=== PATIENT | female | born 1940 | race Caucasian/White ===

== ENCOUNTER 2016-09-07 11:00 | Outpatient (CLI) | payer MEDICARE, OTHER | END 2016-09-07 11:01 | DX: R41.3 Other amnesia (principal); E78.5 Hyperlipidemia, unspecified; D72.819 Decreased white blood cell count, unspecified ==

== ENCOUNTER 2016-10-05 09:56 | Outpatient (CLI) | payer MEDICARE, OTHER ==
--- NOTE | 2016-10-08 14:20 | Mammography Report ---
DIGITAL SCREENING MAMMOGRAM: 10/05/2016 CLINICAL INDICATION: A 76-year-old with personal history of left breast cancer, status post mastectom y and chemoradiation, history of benign right breast biopsies, for screening. COMPARISON: 03/2015, 01/2014, 12/2012, 12/2011, 01/2011, 12/2009, 12/2008, 12/2007, 11/2006. TECHNIQUE: Right CC and MLO views were obtained. FINDINGS: The right breast again demonstrates heterogeneously dense fibroglandular parenchyma. Postb iopsy changes are stable. Coarse and punctate, typically benign calcifications are present. No suspic ious masses, clustered microcalcifications, or regions of architectural distortion are identified. IMPRESSION: BENIGN FINDINGS. RECOMMENDATION: ROUTINE ANNUAL SCREENING UNLESS OTHERWISE CLINICALLY INDICATED. BIRADS CATEGORY 2-BENIGN FINDINGS. STANDARD QUALIFYING STATEMENTS 1. This examination was reviewed with the aid of Computer-Aided Detection (CAD). 2. A negative or benign imaging report should not delay biopsy if clinically suspicious findings are present. Consider surgical consultation if warranted. More than 5% of cancers are not identified by i maging. 3. Dense breasts may obscure an underlying neoplasm. JOB #: [id number] EXT JOB #:
== END 2016-10-05 09:57 | disposition home or self-care (01) ==
LOC: DI 09:56
PROVIDERS: ATTEND Family Medicine
DX: Z12.31 Encounter for screening mammogram for malignant neoplasm of breast (principal); Z85.3 Personal history of malignant neoplasm of breast; Z90.12 Acquired absence of left breast and nipple
CPT/HCPCS: 77067

== ENCOUNTER 2017-09-19 11:31 | Outpatient (CLI) | payer MEDICARE, OTHER ==
[2017-09-19 19:01] LABS: BASOPHILS % (AUTO) 0.8 %; EOSINOPHILS # (AUTO) 0.1 10^3/uL (0.0-0.7); EOSINOPHILS % (AUTO) 1.4 %; HGB - HEMOGLOBIN 13.3 g/dL (12.0-16.0); LYMPHOCYTES # (AUTO) 1.5 10^3/uL (1.5-3.5); LYMPHOCYTES % (AUTO) 32.7 %; MEAN CORPUSCULAR HEMOGLOBIN 31.1 pg (27.0-31.0); MEAN CORPUSCULAR HGB CONC 32.9 g/dL (32.0-36.0); MEAN CORPUSCULAR VOLUME 94.8 fL (81.0-99.0); MEAN PLATELET VOLUME 9.7 fL (7.9-10.8); MONOCYTES # (AUTO) 0.4 10^3/uL (0.0-1.0); MONOCYTES % (AUTO) 8.7 %; NEUTROPHILS # (AUTO) 2.5 10^3/uL (1.5-6.6); NEUTROPHILS % (AUTO) 56.4 %; PLT - PLATELET COUNT 190 10^3/uL (130-450); RED BLOOD COUNT 4.29 10^6/uL (4.20-5.40); RED CELL DISTRIBUTION WIDTH 14.2 % (12.0-15.0); WHITE BLOOD COUNT 4.5 x10^3/uL (4.8-10.8)
[2017-09-19 19:39] LABS: ALBUMIN 4.3 g/dL (3.2-5.5); ALBUMIN/GLOBULIN RATIO 1.7 (1.0-2.2); ALKALINE PHOSPHATASE 40 IU/L (42-121); ALT ALANINE AMINOTRANSFERASE < 10 IU/L (10-60); AST ASPARTATE AMINOTRANSFERASE 15 IU/L (10-42); BUN - BLOOD UREA NITROGEN 24 mg/dL (6-20); CARBON DIOXIDE - CO2 28 mmol/L (21-32); CHLORIDE 101 mmol/L (101-111); CHOL/HDL RATIO 4.4 (<4.4); CHOLESTEROL 288 mg/dL; GFR - MDRD 54 (>89); GLUCOSE 88 mg/dL (70-100); HDL CHOLESTEROL 65 mg/dL; LDL CHOLESTEROL,CALCULATED 206 mg/dL; LDL/HDL RATIO 3.2 (<4.4); SODIUM 137 mmol/L (135-145); TOTAL PROTEIN 6.8 g/dL (6.7-8.2); VLDL CHOLESTEROL 17 mg/dL
== END 2017-09-19 11:32 | disposition home or self-care (01) ==
LOC: LAB.WCP 11:31
PROVIDERS: ATTEND Family Medicine
DX: G20 Parkinson's disease (principal); E78.5 Hyperlipidemia, unspecified; E55.9 Vitamin D deficiency, unspecified
CPT/HCPCS: 36415; 80053; 80061; 82306; 83721; 85025

== ENCOUNTER 2017-10-31 08:00 | Outpatient (CLI) | END 2017-10-31 08:01 | disposition home or self-care (01) ==

== ENCOUNTER 2017-11-01 08:00 | Outpatient (CLI) | payer MEDICARE, OTHER | END 2017-11-01 08:01 | disposition home or self-care (01) | LOC: LAB.WCP 08:00 | PROVIDERS: ATTEND Family Medicine | DX: R19.7 Diarrhea, unspecified (principal) | CPT/HCPCS: 81599; 83630; 87045; 87046; 87177; 87209; 87329; 87493 ==

== ENCOUNTER 2018-03-23 10:44 | Outpatient (CLI) | payer MEDICARE, OTHER ==
--- NOTE | 2018-03-24 12:29 | Mammography Report ---
Reason: SCREENING MAMMO Procedure Date: 03/23/2018 Accession Number: [id number] / [id number] Procedure: LAST - Screening Mammo Right w/Emmanuel CPT Code: FULL RESULT: EXAM: Screening Mammo Right w/Emmanuel DATE: 03/23/2018 11:46 AM CLINICAL HISTORY: 78-year-old female with personal history of left breast cancer status post mastectomy and chemoradiation for screening. TECHNIQUE: Right CC, MLO and exaggerated CC views were obtained. COMPARISON: 10/05/2016, 03/12/2015, 01/08/2014, 01/03/2013. FINDINGS: The right breast demonstrates heterogeneously dense fibroglandular parenchyma. Coarse typically benign calcifications are identified. No suspicious masses, clustered microcalcifications, or regions of architectural distortion are identified. IMPRESSION: Benign findings RECOMMENDATION: Routine annual screening unless otherwise clinically indicated. BIRADS CATEGORY 2: Benign findings STANDARD QUALIFYING STATEMENTS: 1. This examination was not reviewed with the aid of Computer-Aided Detection (CAD). 2. A negative or benign imaging report should not delay biopsy if clinically suspicious findings are present. Consider surgical consultation if warrented. More than 5% of cancers are not identified by imaging. 3. Dense breasts may obscure an underlying neoplasm. 4. This examination was reviewed with the aid of 3D breast imaging (tomosynthesis).
== END 2018-03-23 10:45 | disposition home or self-care (01) ==
LOC: DI 10:44
DX: Z12.31 Encounter for screening mammogram for malignant neoplasm of breast (principal); Z08 Encounter for follow-up examination after completed treatment for malignant neoplasm; Z85.3 Personal history of malignant neoplasm of breast
CPT/HCPCS: 77063

== ENCOUNTER 2018-04-07 08:00 | Outpatient (CLI) | payer MEDICARE, OTHER ==
[2018-04-07 20:24] LABS: H. PYLORIS ANTIGEN STL NEGATIVE (Negative)
== END 2018-04-07 23:59 | disposition home or self-care (01) ==
LOC: LAB.R 08:00
PROVIDERS: ATTEND Family Medicine
DX: R19.7 Diarrhea, unspecified (principal)
CPT/HCPCS: 81599; 83630; 87045; 87046; 87177; 87209; 87329; 87338; 87493

== ENCOUNTER 2018-04-08 12:58 | Outpatient (CLI) | payer MEDICARE, OTHER ==
[2018-04-08 13:22] LABS: BASOPHILS # (AUTO) 0.1 10^3/uL (0.0-0.1); BASOPHILS % (AUTO) 0.9 %; EOSINOPHILS # (AUTO) 0.1 10^3/uL (0.0-0.7); EOSINOPHILS % (AUTO) 1.1 %; HGB - HEMOGLOBIN 14.2 g/dL (12.0-16.0); LYMPHOCYTES # (AUTO) 1.4 10^3/uL (1.5-3.5); LYMPHOCYTES % (AUTO) 25.5 %; MEAN CORPUSCULAR HEMOGLOBIN 31.7 pg (27.0-31.0); MEAN CORPUSCULAR HGB CONC 33.8 g/dL (32.0-36.0); MEAN CORPUSCULAR VOLUME 93.7 fL (81.0-99.0); MEAN PLATELET VOLUME 9.4 fL (7.9-10.8); MONOCYTES # (AUTO) 0.5 10^3/uL (0.0-1.0); MONOCYTES % (AUTO) 8.9 %; NEUTROPHILS # (AUTO) 3.6 10^3/uL (1.5-6.6); NEUTROPHILS % (AUTO) 63.6 %; PLT - PLATELET COUNT 216 10^3/uL (130-450); RED BLOOD COUNT 4.48 10^6/uL (4.20-5.40); RED CELL DISTRIBUTION WIDTH 14.1 % (12.0-15.0); WHITE BLOOD COUNT 5.6 x10^3/uL (4.8-10.8)
[2018-04-08 13:34] LABS: ALBUMIN 4.5 g/dL (3.2-5.5); ALBUMIN/GLOBULIN RATIO 1.6 (1.0-2.2); ALKALINE PHOSPHATASE 49 IU/L (42-121); ALT ALANINE AMINOTRANSFERASE < 10 IU/L (10-60); AST ASPARTATE AMINOTRANSFERASE 15 IU/L (10-42); BUN - BLOOD UREA NITROGEN 31 mg/dL (6-20); CALCIUM 9.5 mg/dL (8.5-10.3); CARBON DIOXIDE - CO2 30 mmol/L (21-32); CHLORIDE 100 mmol/L (101-111); CREATININE 1.3 mg/dL (0.4-1.0); GFR - MDRD 40 (>89); GLUCOSE 101 mg/dL (70-100); SODIUM 136 mmol/L (135-145); TOTAL PROTEIN 7.4 g/dL (6.7-8.2)
== END 2018-04-08 12:59 | disposition home or self-care (01) ==
LOC: DI 12:58
PROVIDERS: ATTEND Family Medicine
DX: R10.9 Unspecified abdominal pain (principal); R11.2 Nausea with vomiting, unspecified; R19.7 Diarrhea, unspecified; Z53.9 Procedure and treatment not carried out, unspecified reason
CPT/HCPCS: 80053; 85025

== ENCOUNTER 2018-04-12 09:41 | Outpatient (CLI) | payer MEDICARE, OTHER ==
[2018-04-12] MEDS ORDERED: IOVERSOL 320 50 ML VIAL ONE (10:04)
[2018-04-12] MEDS ORDERED: IOVERSOL 320 100 ML VIAL IVP ONE ×2 (10:04→13:21)
[2018-04-12 10:19] LABS: BASOPHILS # (AUTO) 0.1 10^3/uL (0.0-0.1); BASOPHILS % (AUTO) 1.1 %; EOSINOPHILS # (AUTO) 0.1 10^3/uL (0.0-0.7); EOSINOPHILS % (AUTO) 2.3 %; HGB - HEMOGLOBIN 14.1 g/dL (12.0-16.0); LYMPHOCYTES # (AUTO) 1.1 10^3/uL (1.5-3.5); LYMPHOCYTES % (AUTO) 24.1 %; MEAN CORPUSCULAR HEMOGLOBIN 31.7 pg (27.0-31.0); MEAN CORPUSCULAR HGB CONC 34.1 g/dL (32.0-36.0); MEAN CORPUSCULAR VOLUME 93.2 fL (81.0-99.0); MEAN PLATELET VOLUME 9.4 fL (7.9-10.8); MONOCYTES # (AUTO) 0.5 10^3/uL (0.0-1.0); MONOCYTES % (AUTO) 11.1 %; NEUTROPHILS # (AUTO) 2.7 10^3/uL (1.5-6.6); NEUTROPHILS % (AUTO) 61.4 %; PLT - PLATELET COUNT 204 10^3/uL (130-450); RED BLOOD COUNT 4.43 10^6/uL (4.20-5.40); RED CELL DISTRIBUTION WIDTH 13.8 % (12.0-15.0); WHITE BLOOD COUNT 4.5 x10^3/uL (4.8-10.8)
[2018-04-12 10:30] LABS: ALBUMIN 4.3 g/dL (3.2-5.5); ALBUMIN/GLOBULIN RATIO 1.8 (1.0-2.2); ALKALINE PHOSPHATASE 43 IU/L (42-121); ALT ALANINE AMINOTRANSFERASE < 10 IU/L (10-60); AST ASPARTATE AMINOTRANSFERASE 14 IU/L (10-42); BILIRUBIN,TOTAL 0.9 mg/dL (0.2-1.0); BUN - BLOOD UREA NITROGEN 24 mg/dL (6-20); CARBON DIOXIDE - CO2 30 mmol/L (21-32); CHLORIDE 101 mmol/L (101-111); GFR - MDRD 54 (>89); GLUCOSE 100 mg/dL (70-100); SODIUM 136 mmol/L (135-145); TOTAL PROTEIN 6.7 g/dL (6.7-8.2)
[2018-04-12] MEDS ORDERED: IOVERSOL 320 50 ML VIAL PO ONE (13:21)
--- NOTE | 2018-04-12 13:34 | CT Report ---
Reason: ABDOMINAL PAIN, NAUSEA VOMITING, CHRONIC DIARRHE Procedure Date: 04/12/2018 Accession Number: [id number] / [id number] Procedure: CT - Abdomen/Pelvis W/ CPT Code: FULL RESULT: EXAM: CT ABDOMEN AND PELVIS EXAM DATE: 04/12/2018 11:44 AM. CLINICAL HISTORY: Abdominal pain, nausea, vomiting, chronic diarrhea. COMPARISONS: ABDOMEN/PELVIS W/O 10/18/2014 11:25 AM. TECHNIQUE: Routine helical CT imaging was performed through the abdomen and pelvis. IV contrast: OPTI 320 80mL. Enteric contrast: Yes. Reconstructions: Coronal and sagittal. In accordance with CT protocol optimization, one or more of the following dose reduction techniques were utilized for this exam: automated exposure control, adjustment of mA and/or KV based on patient size, or use of iterative reconstructive technique. FINDINGS: Lung Bases: Unremarkable. Liver: Multiple hepatic cysts and hypodensities which are too small to characterize. The largest cyst is in the right lobe of the liver demonstrates septations and measures up to 2.4 cm. Gallbladder/Bile Ducts: Unremarkable. Spleen: Normal. Pancreas: Normal. Adrenal Glands: Normal. Kidneys: Normal. No masses or hydronephrosis. Peritoneal Cavity/Bowel: Marked diverticulosis of the sigmoid colon. There is mild focal stranding surrounding the distal sigmoid colon suggestive of diverticulitis without macro perforation. No free fluid, free air . No mass. Pelvic Organs: Normal. The bladder and visualized pelvic organs are within normal limits. Vasculature: Atherosclerosis without aneurysm. Bones: 4 mm of anterolisthesis of L3 on L4 and anterior wedge compression fracture of L1, approximately 25% loss of height, also seen in 2015. No aggressive osseous lesions are seen. Other: None. IMPRESSION: Uncomplicated diverticulitis of the distal sigmoid colon in the setting of extensive sigmoid diverticulosis. RADIA
== END 2018-04-12 09:42 | disposition home or self-care (01) ==
LOC: LAB 09:41 → DI 09:42
PROVIDERS: ATTEND Family Medicine
DX: K57.32 Diverticulitis of large intestine without perforation or abscess without bleeding (principal)
CPT/HCPCS: 36415; 74177; 80053; 85025; Q9967

== ENCOUNTER 2018-06-22 09:26 | Day surgery (SDC) | payer MEDICARE, OTHER ==
[~2018-06-22 09:26] MED LIST: BRIMONIDINE 0.2% OPHTH DROPS 5 ML ONE; BSS/LIDOCAINE/EPINEPHRINE 1 ML SYRINGE ONE; EPINEPHrine 1 MG/ML AMP ONE; TIMOLOL 0.5% OPHTH DROPS ONE; TRIAMCIN/MOXIFLOX OPHTHALMIC 0.6 ML VIAL IO ONE; VANCOMYCIN OPHTHALMI 8MG/0.8ML 8 MG/0.8 ML SYRINGE IO ONE
[2018-06-22] MEDS ORDERED: PROPARACAINE 0.5% OPHTH DROPS 15 ML ONE (09:43)
[2018-06-22] MEDS ORDERED: KETOROLAC 0.45% OPHTH DROPS ONE (09:44)
[2018-06-22] MEDS ORDERED: CYCLOPENTOLATE 1% OPHTH DROPS 2 ML ONE (09:44)
[2018-06-22] MEDS ORDERED: PHENYLEPHRINE 2.5% OPHTH 2 ML DROPS ONE (09:45)
[2018-06-22] MEDS ORDERED: LACTATED RINGERS 500 ML IV ONE (09:50)
[2018-06-22] MEDS ORDERED: KETOROLAC 0.45% OPHTH DROPS RIGHTEYE ONE (09:55)
[2018-06-22] MEDS ORDERED: PHENYLEPHRINE 2.5% OPHTH 2 ML DROPS RIGHTEYE ONE (09:55)
[2018-06-22] MEDS ORDERED: CYCLOPENTOLATE 1% OPHTH DROPS 2 ML RIGHTEYE ONE (09:55)
[2018-06-22] MEDS ORDERED: PROPARACAINE 0.5% OPHTH DROPS 15 ML RIGHTEYE ONE ×2 (09:55→11:09)
--- NOTE | 2018-06-22 10:06 | ANESTHESIA ---
Pre-Anesthesia VS, & Labs - Diagnosis R nuclear sclerotic cataract - Procedure R laser assisted extraction cataract with IOL Vital Signs: Temp Pulse Resp BP Pulse Ox 36.1 C L 55 L 14 98/59 L 99 06/22/18 09:45 06/22/18 09:45 06/22/18 09:45 06/22/18 09:45 06/22/18 09:45 Height 5 ft 4 in Weight (kg) 52.9 kg Body Mass Index 26.6 - NPO >8 hours - Is Patient ?: No Home Medications and Allergies Home Medications: Ambulatory Orders Carbidopa/Levodopa [Carbidopa-Levo ER 25-100 Tab] 1 each PO 06/22/18 Escitalopram [Lexapro] 10 mg PO DAILY 06/22/18 Gabapentin [Neurontin] 100 mg PO ONCE 06/22/18 Metoprolol Succinate [Toprol Xl] 25 mg PO ONCE 06/22/18 Calcium Carbonate [Calcium] 600 mg PO BID 08/13/13 Cholecalciferol (Vitamin D3) [Vitamin D] 1,000 unit PO BID 08/13/13 Rabeprazole Sodium [Aciphex] 20 mg PO DAILY 08/13/13 Simvastatin [Zocor] 20 mg PO DAILY 08/13/13 Zaleplon [Sonata] 5 mg PO DAILY 08/13/13 Fluticasone [Flonase] 1 sprays ALEXUS DAILY 08/12/14 Allergies/Adverse Reactions: Allergies Allergy/AdvReac Type Severity Reaction Status Date / Time No Known Drug Allergies Allergy Verified 08/13/13 09:49 Anes History & Medical History - Anesthetic History Anesthesia Complications: reports: No previous complications Family history of Anesthesia Complications: Denies Family history of Malignant Hyperthermia: Denies - Medical History Cardiovascular: reports: Hypertension, High cholesterol Neuro: reports: Parkinson's (tremulous at times) - Surgical History General: Colonoscopy Gynecologic: Mastectomy Orthopedic: Rotator cuff repair Exam General: Alert, Oriented x3, Cooperative Dental: WNL Mouth Openin Fingerbreadth Neck Mobility: Normal Mallampati classification: II Thyromental Distance: 4-6 cm Respiratory: Normal breath sounds Cardiovascular: Regular rate (anthony @50ish) Neurological: Normal speech Mental/Cognitive Status: Alert/Oriented X3, Normal for patient Plan Anesthesia Type: MAC Consent for Procedure(s) Verified and Reviewed: Yes Code Status: Attempt Resuscitation ASA classification: 2-Mild systemic disease Is this case an emergency?: No
[2018-06-22] MEDS ORDERED: BRIMONIDINE 0.2% OPHTH DROPS 5 ML OPTH ONE (11:18)
[2018-06-22] MEDS ORDERED: EPINEPHrine 1 MG/ML AMP IVP ONE (11:18)
[2018-06-22] MEDS ORDERED: CHONDR SULF/HYALURONATE SYRINGE IO ONE (11:18)
[2018-06-22] MEDS ORDERED: TIMOLOL 0.5% OPHTH DROPS OPTH ONE (11:18)
[2018-06-22] MEDS ORDERED: BSS/LIDOCAINE/EPINEPHRINE 1 ML SYRINGE IO ONE (11:40)
[2018-06-22] MEDS ORDERED: LACTATED RINGERS 1,000 ML IV ONE (11:45)
[2018-06-22] MEDS ORDERED: MIDAZOLAM 2 MG/2 ML VIAL IVP ONE (12:00)
[2018-06-22] MEDS ORDERED: PROPOFOL 200 MG/20 ML VIAL IVP ONE (12:00)
--- NOTE | 2018-06-22 12:15 | OPERATIVE REPORT ---
DATE OF SERVICE: 06/22/2018 Physician: Peter Harper MD PREOPERATIVE DIAGNOSIS: Visually significant cataract, right eye. This was her first cataract surgery. POSTOPERATIVE DIAGNOSIS: Visually significant cataract, right eye. This was her first cataract surgery. NAME OF PROCEDURE: Phacoemulsification with posterior chamber intraocular lens implant, right eye. Laser assist was attempted, but the patient was unable to cooperate for eye docking. SURGEON: Peter Harper MD ANESTHESIA: Monitored anesthesia care was planned; however, due to cooperation issues and dementia, it was decided to go to general surgery with LMA. COMPLICATIONS: None. OPERATIVE INDICATIONS: This is a 78-year-old woman with progressive vision loss in the right eye due to 3+ nuclear sclerotic cataract. Best corrected visual acuity was 20/70, with glare to 20/125 in the right eye. Indications for this surgery were difficulty seeing words on a computer screen, difficulty reading, difficulty seeing street signs, difficulty driving in low light or at night, difficulty driving at night because of headlights from other vehicles, and difficulty with glare or bright lights in any situation. She was consented at length concerning risks and benefits of cataract surgery, after which she expressed a desire to proceed with surgery. OPERATIVE PROCEDURE: The patient was taken to OR #3 and placed under monitored anesthesia care. A surgical timeout was conducted confirming the correct patient, correct procedure, and correct surgical site. As stated before, she was placed under the LenSx laser, but after multiple attempts was not able to dock due to cooperation and movement. Laser assisted cataract surgery was abandoned and the patietn was place under general anesthesia in preparation for traditional cataract surgery. The eye was entered at the 12 and 9 o'clock positions. Intracameral Shugarcaine was injected into the anterior chamber, followed by Viscoat. A capsulorrhexis flap was created and removed from the anterior chamber. The nucleus was hydrodissected and phacoemulsified. The cortex was evacuated using automated infusion and aspiration. Provisc was injected in the capsular bag, and an 18.0 diopter intraocular lens inserted in the bag. Approximately 0.8 mL of a mixture of triamcinolone, moxifloxacin and vancomycin was injected subconjunctivally in the superior quadrant for infection and inflammation prophylaxis. I?A was used to evacuate the viscoelastic materials. The eye was inflated to physiologic pressure using balanced salt solution, and found to be watertight. Patient was extubated and taken from the operating room in good condition, and given postoperative instructions. TD: 06/22/2018 11:58 MTDKevin
[2018-06-22 12:33] VITALS: BP 127/68
== END 2018-06-22 09:27 | disposition home or self-care (01) ==
LOC: SDS 09:26
PROVIDERS: ATTEND Ophthalmology
PROC: 08RJ3JZ Replacement of Right Lens with Synthetic Substitute, Percutaneous Approach (ICD-10-PCS; principal; 2018-06-22 10:45)
DX: H25.11 Age-related nuclear cataract, right eye (principal); G20 Parkinson's disease; F02.80 Dementia in other diseases classified elsewhere, unspecified severity, without behavioral disturbance, psychotic disturbance, mood disturbance, and anxiety; F41.9 Anxiety disorder, unspecified; I10 Essential (primary) hypertension; I48.91 Unspecified atrial fibrillation
CPT/HCPCS: 66984; A9270; J3490; J7120; V2632

== ENCOUNTER 2018-07-03 13:43 | Day surgery (SDC) | payer MEDICARE, OTHER ==
[2018-07-03] MEDS ORDERED: LACTATED RINGERS 1,000 ML IV ONE (14:21)
[2018-07-03] MEDS ORDERED: MIDAZOLAM 2 MG/2 ML VIAL IVP ONE (15:04)
[2018-07-03] MEDS ORDERED: fentaNYL 100 MCG/2 ML VIAL IVP ONE (15:04)
[2018-07-03 16:15] VITALS: BP 110/65
== END 2018-07-03 16:13 | disposition home or self-care (01) ==
LOC: SDS 13:43
PROVIDERS: ATTEND Surgery
PROC: 0DBP8ZZ Excision of Rectum, Via Natural or Artificial Opening Endoscopic (ICD-10-PCS; principal; 2018-07-03 15:00)
DX: Z12.11 Encounter for screening for malignant neoplasm of colon (principal); K62.1 Rectal polyp; K64.8 Other hemorrhoids; G20 Parkinson's disease; F02.80 Dementia in other diseases classified elsewhere, unspecified severity, without behavioral disturbance, psychotic disturbance, mood disturbance, and anxiety; K42.9 Umbilical hernia without obstruction or gangrene
CPT/HCPCS: 45380; J7120

== ENCOUNTER 2018-07-12 13:43 | Emergency (ER) | payer MEDICARE, OTHER ==
--- NOTE | 2018-07-12 15:13 | CT Report ---
Reason: fall, rib pain Procedure Date: 07/12/2018 Accession Number: [id number] / [id number] Procedure: CT - CHEST WO CPT Code: FULL RESULT: EXAM: CT CHEST EXAM DATE: 07/12/2018 02:38 PM. CLINICAL HISTORY: Fall, rib pain. COMPARISONS: ABDOMEN/PELVIS W/ 04/12/2018 11:27 AM. TECHNIQUE: Routine helical CT imaging was performed through the chest. IV contrast: None. Reconstructions: Coronal and sagittal. In accordance with CT protocol optimization, one or more of the following dose reduction techniques were utilized for this exam: automated exposure control, adjustment of mA and/or KV based on patient size, or use of iterative reconstructive technique. FINDINGS: Lungs/Pleura: Spiculated right posterior apical mass measuring roughly 15 x 11 mm on lung image 14. This appears roughly contiguous with a similar nodule measuring about 12 mm in diameter on image 19. Trace left pleural effusion. Otherwise clear. Mediastinum: Overall normal heart size. No pericardial effusion. At least one vessel coronary artery calcification. No lymphadenopathy. Bones: Fractures of anterolateral left sixth, seventh, and eighth ribs. Old anterior upper endplate compression of L1. Visualized Abdomen: Hepatic hemangioma, hyperdense left renal cyst, questionable density in gallbladder. Other: None. IMPRESSION: 1. Left sixth, seventh, and eighth rib fractures. 2. Spiculated right apical lung mass, suspicious for neoplasm. Follow-up biopsy or PET scan is recommended, per Fleischner Society guidelines. 3. Other chronic or incidental findings. RADIA
--- NOTE | 2018-07-12 15:14 | XRAY Report ---
Reason: hip pain Procedure Date: 07/12/2018 Accession Number: [id number] / [id number] Procedure: XR - Hip w/Pelvis 2-3V LT CPT Code: FULL RESULT: EXAM: LEFT HIP RADIOGRAPHY EXAM DATE: 07/12/2018 02:57 PM. CLINICAL HISTORY: Hip pain. COMPARISON: None. TECHNIQUE: 2 views. FINDINGS: Bones: No fracture or focal bony lesion. Joints: No evidence of dislocation. Soft Tissues: No unexpected soft tissue findings. IMPRESSION: No evidence of fracture or dislocation. RADIA
--- NOTE | 2018-07-12 15:51 | ED Physician Documentation ---
PD HPI Fall - Stated complaint Stated Complaint: GLF/SENT BY - Chief complaint Chief Complaint: Resp - Additional information Additional information: 78-year-old female presents the emergency department for evaluation of left- sided rib pain after falling several days ago at home. The patient fell into some furniture and subsequently has had ongoing left-sided rib pain. The patient also bruised her left hip but that has improved. The patient denies injury to her head, neck, abdomen or upper extremities. Symptoms are described as moderate. No relieving factors. No other associated symptoms Review of Systems Constitutional: denies: Fever Eyes: denies: Discharge Ears: denies: Ear pain Nose: denies: Congestion Throat: denies: Sore throat Cardiac: reports: Chest pain / pressure (Chest pain) GI: denies: Abdominal Pain Musculoskeletal: reports: Extremity pain. 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 - Present Medications Home Medications: Ambulatory Orders Medication Instructions Recorded Confirmed Rabeprazole Sodium [Aciphex] 20 mg PO DAILY 08/13/13 07/03/18 Simvastatin [Zocor] 20 mg PO DAILY 08/13/13 07/03/18 Escitalopram [Lexapro] 20 mg PO DAILY 06/22/18 07/03/18 Metoprolol Succinate [Toprol Xl] 25 mg PO ONCE 06/22/18 07/03/18 Aspirin 325 mg PO PRN 06/30/18 Carbidopa/Levodopa [Carbidopa-Levo 1 tab PO DAILY 06/30/18 07/03/18 ER 25-100 Tab] Donepezil [Aricept] 5 mg PO DAILY 06/30/18 07/03/18 Fexofenadine HCl [Octavia Allergy] 180 mg PO DAILY 06/30/18 07/03/18 Loperamide [Imodium] 2 mg PO DAILY 06/30/18 06/30/18 Hydrocodone/Acetaminophen [Calliham 1 each PO Q6HR PRN #10 tablet 07/12/18 5-325 Tablet] - Allergies Allergies/Adverse Reactions: Allergies Allergy/AdvReac Type Severity Reaction Status Date / Time No Known Drug Allergies Allergy Verified 07/12/18 14:01 - Social History Does the pt smoke?: No Smoking Status: Never smoker Does the pt drink ETOH?: No Does the pt have substance abuse?: No PD ED PE NORMAL - General General: Alert and oriented X 3, No acute distress - HEENT HEENT: Atraumatic, PERRL, EOMI, Ears normal - Neck Neck: No bony TTP - Cardiac Cardiac: RRR, Strong equal pulses - Respiratory Respiratory: No respiratory distress, Clear bilaterally, Other (The patient is tender to palpation in the left lateral anterior chest wall, there is no crepitus or subcutaneous emphysema) - Abdomen Abdomen: Soft, Non tender, Non distended - Derm Derm: Normal color - Extremities Extremities: No deformity, No tenderness to palpate - Neuro Neuro: Alert and oriented X 3, Normal speech - Psych Psych: Normal mood Results - Vitals Vitals: Vital Signs - 24 hr 07/12/18 07/12/18 13:58 16:11 Temperature 36.8 C Heart Rate 54 L 54 L Respiratory 16 18 Rate Blood Pressure 127/44 L 153/88 H O2 Saturation 100 100 Oxygen O2 Source Room air - Rads (name of study) CT chest w/o Radiology: Final report received, See rad report (IMPRESSION: 1. Left sixth, seventh, and eighth rib fractures. 2. Spiculated right apical lung mass, suspicious for neoplasm. Follow-up biopsy or PET scan is recommended, per Fleischner Society guidelines. 3. Other chronic or incidental findingsIMPRESSION: 1. Left sixth, seventh, and eighth rib fractures. 2. Spiculated right apical lung mass, suspicious for neoplasm. Follow-up biopsy or PET scan is recommended, per Fleischner Society guidelines. 3. Other chronic or incidental findings) XR hip Radiology: Final report received, See rad report (No acute fracture) PD MEDICAL DECISION MAKING - ED course ED course: The findings were discussed with the patient and her . They understand the acute issue and the incidental finding of the lung mass. I explained that this will need further workup and offered to call to help arrange for follow-up with 1 of the tertiary centers. They have decided they would prefer to talk with 2 physician friends about the best center to be referred to. They will then follow up with primary care for referrals. I also discussed the findings with the patient's on-call provider who will arrange for a follow-up visit this week to help coordinate care. The patient currently appears appropriate for discharge and ongoing outpatient management. I discussed warning signs and recommended returning for any worsening or any concerns Departure - Departure Disposition: 01 Home, Self Care Clinical Impression: Lung mass Rib fractures Qualifiers: Encounter type: initial encounter Rib fracture type: multiple ribs Fracture type: closed Laterality: unspecified laterality Qualified Code(s): S22.49XA - Multiple fractures of ribs, unspecified side, initial encounter for closed fracture Contusion, hip Qualifiers: Encounter type: initial encounter Laterality: left Qualified Code(s): S70.02XA - Contusion of left hip, initial encounter Condition: Good Instructions: ED Fx Rib, ED Nodule Solitary Pulmonary Follow-Up: Eve Belle, [Primary Care Provider] - (Please follow-up this week for further workup and management of your acute findings seen on CT scan which will require either a biopsy or PET scan) Prescriptions: Hydrocodone/Acetaminophen [Calliham 5-325 Tablet] 1 each PO Q6HR PRN #10 tablet PRN Reason: Pain Comments: Please return to the emergency department for any worsening or any concerns
[2018-07-12] MEDS ORDERED: HYDROcod/ACETAM 5/325 MG TABLET PO STA (15:52)
[2018-07-12 16:12] VITALS: BP 153/88
== END 2018-07-12 16:39 | disposition home or self-care (01) ==
LOC: ED 13:43
DX: S22.42XA Multiple fractures of ribs, left side, initial encounter for closed fracture (principal); W19.XXXA Unspecified fall, initial encounter; Y92.009 Unspecified place in unspecified non-institutional (private) residence as the place of occurrence of the external cause; R91.8 Other nonspecific abnormal finding of lung field; I10 Essential (primary) hypertension; G20 Parkinson's disease
CPT/HCPCS: 71250; 99283; 99284

== ENCOUNTER 2018-08-10 09:00 | Day surgery (SDC) | payer MEDICARE, OTHER ==
[~2018-08-10 09:00] MED LIST changes: +CYCLOPENTOLATE 1% OPHTH DROPS 2 ML ONE; +KETOROLAC 0.45% OPHTH DROPS ONE; +PHENYLEPHRINE 2.5% OPHTH 2 ML DROPS ONE; +PROPARACAINE 0.5% OPHTH DROPS 15 ML ONE
--- NOTE | 2018-08-10 10:17 | ANESTHESIA ---
Pre-Anesthesia VS, & Labs - Diagnosis left nuclear sclerotic cataract - Procedure left extraction cataract with lens implant Vital Signs: Temp Pulse Resp BP Pulse Ox 36.5 C 53 L 16 129/66 100 08/10/18 09:39 08/10/18 09:39 08/10/18 09:39 08/10/18 09:39 08/10/18 09:39 Height 5 ft 2 in Weight (kg) 52.8 kg Body Mass Index 19.2 - NPO Other (water at 0925 today) - Is Patient ?: Not Applicable Home Medications and Allergies Rabeprazole Sodium [Aciphex] 20 mg PO DAILY 08/13/13 Simvastatin [Zocor] 20 mg PO DAILY 08/13/13 Escitalopram [Lexapro] 20 mg PO DAILY 06/22/18 Metoprolol Succinate [Toprol Xl] 25 mg PO ONCE 06/22/18 Aspirin 325 mg PO PRN 06/30/18 Carbidopa/Levodopa [Carbidopa-Levo ER 25-100 Tab] 1 tab PO DAILY 06/30/18 Donepezil [Aricept] 5 mg PO DAILY 06/30/18 Fexofenadine HCl [Octavia Allergy] 180 mg PO DAILY 06/30/18 Loperamide [Imodium] 2 mg PO DAILY 06/30/18 Allergies/Adverse Reactions: Allergies Allergy/AdvReac Type Severity Reaction Status Date / Time No Known Drug Allergies Allergy Verified 07/12/18 14:01 Anes History & Medical History - Anesthetic History Anesthesia Complications: reports: No previous complications Family history of Anesthesia Complications: Denies Family history of Malignant Hyperthermia: Denies - Medical History Cardiovascular: reports: Hypertension Pulmonary: reports: None Gastrointestinal: reports: Other Urinary: reports: None Neuro: reports: Parkinson's Musculoskeletal: reports: None Endocrine/Autoimmune: reports: None Skin: reports: Rosacea Smoking Status: Never smoker - Surgical History General: Colonoscopy Eyes Ears Nose Throat (EENT): Cataracts Gynecologic: Mastectomy Orthopedic: Shoulder arthroplasty Exam General: Alert, Oriented x3, Cooperative, No acute distress Dental: WNL Mouth Openin Fingerbreadth Neck Mobility: Normal Mallampati classification: II Thyromental Distance: 4-6 cm Respiratory: Lungs clear, Normal breath sounds, No respiratory distress, No accessory muscle use Cardiovascular: Normal S1, Normal S2 Plan Anesthesia Type: General Consent for Procedure(s) Verified and Reviewed: Yes Code Status: Attempt Resuscitation ASA classification: 2-Mild systemic disease Is this case an emergency?: No
[2018-08-10] MEDS ORDERED: LACTATED RINGERS 500 ML IV ONE (10:47)
[2018-08-10] MEDS ORDERED: CYCLOPENTOLATE 1% OPHTH DROPS 2 ML LEFTEYE ONE (10:54)
[2018-08-10] MEDS ORDERED: KETOROLAC 0.45% OPHTH DROPS LEFTEYE ONE (10:54)
[2018-08-10] MEDS ORDERED: PHENYLEPHRINE 2.5% OPHTH 2 ML DROPS LEFTEYE ONE (10:54)
[2018-08-10] MEDS ORDERED: PROPARACAINE 0.5% OPHTH DROPS 15 ML LEFTEYE ONE (10:54)
[2018-08-10] MEDS ORDERED: EPINEPHrine 1 MG/ML AMP IVP ONE (11:38)
[2018-08-10] MEDS ORDERED: TIMOLOL 0.5% OPHTH DROPS OPTH ONE (11:38)
[2018-08-10] MEDS ORDERED: BRIMONIDINE 0.2% OPHTH DROPS 5 ML OPTH ONE (11:38)
[2018-08-10] MEDS ORDERED: CHONDR SULF/HYALURONATE SYRINGE IO ONE (11:38)
[2018-08-10] MEDS ORDERED: BSS/LIDOCAINE/EPINEPHRINE 1 ML SYRINGE IO ONE (11:39)
[2018-08-10] MEDS ORDERED: TRIAMCIN/MOXIFLOX OPHTHALMIC 0.6 ML VIAL IO ONE (11:40)
[2018-08-10] MEDS ORDERED: VANCOMYCIN OPHTHALMI 8MG/0.8ML 8 MG/0.8 ML SYRINGE IO ONE (11:40)
[2018-08-10] MEDS ORDERED: ePHEDrine 50 MG/ML VIAL IVP ONE (11:45)
[2018-08-10] MEDS ORDERED: PROPOFOL 200 MG/20 ML VIAL IVP ONE (11:45)
--- NOTE | 2018-08-10 12:08 | OPERATIVE REPORT ---
DATE OF SERVICE: 08/10/2018 Physician: Peter Harper MD PREOPERATIVE DIAGNOSIS: Visually significant cataract, left eye. Cataract surgery was performed on the right eye on 06/22/2018. POSTOPERATIVE DIAGNOSIS: Visually significant cataract, left eye. Cataract surgery was performed on the right eye on 06/22/2018. PROCEDURE: Phacoemulsification with posterior chamber intraocular lens implant, left eye. SURGEON: Peter Harper MD ANESTHESIA: General anesthesia with LMA. COMPLICATIONS: None. OPERATIVE INDICATIONS: This is a 78-year-old woman with progressive vision loss in the left eye due to 3+ nuclear sclerotic cataract. Best corrected visual acuity was 20/25 with glare to 20/100 in the left eye. Indications for surgery are overall decrease in vision, difficulty seeing words on a computer screen, difficulty reading, difficulty seeing words, closed captions or games scores on TV, difficulty driving in low light or at night, and difficulty driving at night because of headlights from other vehicles. She was consented at length concerning risks and benefits of cataract surgery, after which she expressed a desire to proceed with surgery. OPERATIVE PROCEDURE: The patient was taken to the OR #3 and placed under general anesthesia and a LMA inserted over her airway. A surgical timeout was conducted confirming correct patient, correct procedure, and correct surgical site. She was prepped and draped in the usual sterile fashion. The eye was entered at the 6 and 3 o'clock positions. Intracameral Shugarcaine was injected into the anterior chamber, followed by Viscoat. A continuous-tear curvilinear capsulorrhexis was performed. The nucleus was hydrodissected and phacoemulsified, and the cortex was evacuated using automated infusion and aspiration (I&A). Provisc was injected into the capsular bag and a 17.0 diopter intraocular lens inserted in the bag. Approximately 0.8 mL of a mixture of triamcinolone, moxifloxacin and vancomycin was injected subconjunctivally in the superior quadrant for infection and inflammation prophylaxis. I&A was used to evacuate the viscoelastic material. The eye was inflated to physiologic pressure with balanced salt solution and found to be watertight. The patient was extubated, taken from the operating room in good condition, and given postop instructions. TD: 08/10/2018 11:58 [facility]
[2018-08-10 12:54] VITALS: BP 116/65
== END 2018-08-10 09:01 | disposition home or self-care (01) ==
LOC: SDS 09:00
PROVIDERS: ATTEND Ophthalmology
PROC: 08RK3JZ Replacement of Left Lens with Synthetic Substitute, Percutaneous Approach (ICD-10-PCS; principal; 2018-08-10 10:30)
DX: H25.12 Age-related nuclear cataract, left eye (principal); I48.91 Unspecified atrial fibrillation; I10 Essential (primary) hypertension; F41.9 Anxiety disorder, unspecified; G20 Parkinson's disease; F02.80 Dementia in other diseases classified elsewhere, unspecified severity, without behavioral disturbance, psychotic disturbance, mood disturbance, and anxiety
CPT/HCPCS: 66984; A9270; J3490; V2632

== ENCOUNTER 2018-11-10 13:24 | Outpatient (CLI) | payer MEDICARE, OTHER ==
[2018-11-10 13:57] LABS: CREATININE 1.1 mg/dL (0.4-1.0)
[2018-11-10] MEDS ORDERED: IOVERSOL 320 100 ML VIAL IVP ONE ×2 (14:12→14:19)
--- NOTE | 2018-11-11 23:12 | CT Report ---
Reason: PULMONARY NODULE Procedure Date: 11/10/2018 Accession Number: [id number] / [id number] Procedure: CT - CHEST W CPT Code: FULL RESULT: EXAM: CT CHEST EXAM DATE: 11/10/2018 02:17 PM. CLINICAL HISTORY: PULMONARY NODULE. COMPARISONS: CHEST W/O 07/12/2018 2:37 PM XR CHEST PA AND LAT 12/25/2008 9:36 AM. TECHNIQUE: Routine helical CT imaging was performed through the chest. IV contrast: 80 cc Optiray 320. Reconstructions: Coronal and sagittal. In accordance with CT protocol optimization, one or more of the following dose reduction techniques were utilized for this exam: automated exposure control, adjustment of mA and/or KV based on patient size, or use of iterative reconstructive technique. FINDINGS: Lungs/Pleura: Relatively stable mixed density measuring approximately 1.5 x 2 x 3.5 cm within the right upper lobe. There is a small region of possibly tree-in-bud nodularity within the right lower lobe (image 45 series 4). There is a stable 0.5 cm nodule within the right lower lobe (image 46). No evidence of lobar infiltrate or effusion. No acute central airway abnormalities. There is no evidence of pneumothorax. Mediastinum: There is thoracic aortic tortuosity. There is borderline cardiomegaly. There are no enlarged axillary, supraclavicular, mediastinal, or hilar lymph nodes. Bones: There are remote left lateral rib fractures. No acute bony abnormalities are seen. Visualized Abdomen: The visualized portions of the upper abdominal organs demonstrate no acute abnormalities. Other: None. IMPRESSION: 1. Relatively stable mixed density lesion measuring approximately 1.5 x 2.0 x 3.5 cm within the right upper lobe. Differential considerations include scarring, adenocarcinoma, or atypical infection. Continued short-term follow-up recommended. 2. There is a small region of new possibly tree-in-bud nodularity within the right lower lobe. Attention to this focus on follow-up imaging recommended as indicated. 3. There is a stable 0.5 cm pulmonary nodule within the right lower lobe. 4. There is thoracic aortic tortuosity. 5. There are healing left lateral rib fractures. RADIA
== END 2018-11-10 13:25 | disposition home or self-care (01) ==
LOC: DI 13:24
PROVIDERS: ATTEND Family Medicine
DX: J98.4 Other disorders of lung (principal); R91.1 Solitary pulmonary nodule
CPT/HCPCS: 36415; 71260; 82565; Q9967

== ENCOUNTER 2019-05-22 09:51 | Outpatient (CLI) | payer MEDICARE, OTHER ==
[2019-05-22 10:14] LABS: BASOPHILS % (AUTO) 0.4 %; EOSINOPHILS # (AUTO) 0.1 10^3/uL (0.0-0.7); HGB - HEMOGLOBIN 13.1 g/dL (12.0-16.0); LYMPHOCYTES # (AUTO) 1.2 10^3/uL (1.5-3.5); LYMPHOCYTES % (AUTO) 24.1 %; MEAN CORPUSCULAR HEMOGLOBIN 31.2 pg (27.0-31.0); MEAN CORPUSCULAR HGB CONC 32.1 g/dL (32.0-36.0); MEAN CORPUSCULAR VOLUME 97.1 fL (81.0-99.0); MEAN PLATELET VOLUME 11.4 fL (7.9-10.8); MONOCYTES # (AUTO) 0.4 10^3/uL (0.0-1.0); MONOCYTES % (AUTO) 8.5 %; NEUTROPHILS # (AUTO) 3.3 10^3/uL (1.5-6.6); NEUTROPHILS % (AUTO) 65.8 %; PLT - PLATELET COUNT 186 10^3/uL (130-450); RED CELL DISTRIBUTION WIDTH 13.4 % (12.0-15.0)
[2019-05-22] MEDS ORDERED: IOVERSOL 320 100 ML VIAL IVP ONE ×2 (10:36→11:51)
[2019-05-22 11:03] LABS: ALBUMIN 4.1 g/dL (3.2-5.5); ALBUMIN/GLOBULIN RATIO 1.5 (1.0-2.2); ALKALINE PHOSPHATASE 47 IU/L (42-121); ALT ALANINE AMINOTRANSFERASE < 10 IU/L (10-60); AST ASPARTATE AMINOTRANSFERASE 12 IU/L (10-42); BUN - BLOOD UREA NITROGEN 24 mg/dL (6-20); CALCIUM 9.2 mg/dL (8.5-10.3); CARBON DIOXIDE - CO2 30 mmol/L (21-32); CHLORIDE 103 mmol/L (101-111); CHOL/HDL RATIO 3.1 (<4.4); CHOLESTEROL 190 mg/dL; CREATININE 0.9 mg/dL (0.4-1.0); GFR - MDRD 61 (>89); GLUCOSE 91 mg/dL (70-100); HDL CHOLESTEROL 62 mg/dL; LDL CHOLESTEROL,CALCULATED 111 mg/dL; LDL/HDL RATIO 1.8 (<4.4); SODIUM 140 mmol/L (135-145); TOTAL PROTEIN 6.9 g/dL (6.7-8.2); VLDL CHOLESTEROL 17 mg/dL
--- NOTE | 2019-05-22 15:29 | CT Report ---
Reason: PULMONARY NODULE Procedure Date: 05/22/2019 Accession Number: [id number] / [id number] Procedure: CT - CHEST W CPT Code: Final Report FULL RESULT: EXAM: CT CHEST EXAM DATE: 05/22/2019 11:30 AM. CLINICAL HISTORY: Pulmonary nodule. COMPARISONS: CHEST W/ 11/10/2018 2:13 PM. TECHNIQUE: Routine helical CT imaging was performed through the chest. IV contrast: 80 Optiray 320. Reconstructions: Coronal and sagittal. In accordance with CT protocol optimization, one or more of the following dose reduction techniques were utilized for this exam: automated exposure control, adjustment of mA and/or KV based on patient size, or use of iterative reconstructive technique. FINDINGS: Lungs/Pleura: The spiculated right upper lobe nodule has increased in extent with surrounding groundglass, cranial caudal extent of the overall nodular conglomerate is now 4.4 cm, suspicious for malignancy. The previously seen tree-in-bud nodularity in the peripheral right lower lobe is decreased in conspicuity but persists on image 224 series 4. The medial right lower lobe nodule adjacent to the mediastinal pleura is now seen on image 221 where it measures up to 6 mm, potentially unchanged accounting for differences in technique. There are scattered additional sub-3 mm nodules, some of which are calcified granulomata, for example in the left lower lobe on image 255. While others are so small that they may have been present previously but not detectable due to thicker imaging, example would be 2 mm nodule in the right upper lobe on image 100. No new suspicious nodules are detected. No pleural effusion or pneumothorax. Mediastinum: A prominent right hilar lymph node measures up to 0.9 cm in short axis, no additional adenopathy in mediastinum or left hilum. No pericardial effusion. Variant configuration of the aortic arch with tortuosity, unchanged. Bones: No aggressive osseous lesions are detected. Visualized Abdomen: Indeterminant dome of the right lobe of the liver lesion, Hounsfield units less than 10 with apparent septations. Other: None. IMPRESSION: The spiculated right upper lobe nodule is suspicious for malignancy, recommend tissue sampling versus PET/CT for characterization. Partial redemonstration of a low-density liver lesion, not characterized on this exam. RADIA
== END 2019-05-22 09:52 | disposition home or self-care (01) ==
LOC: LAB 09:51 → DI 09:52
PROVIDERS: ATTEND Nurse Practitioner Family
DX: N18.3 Chronic kidney disease, stage 3 (moderate) (principal); E78.5 Hyperlipidemia, unspecified; R91.8 Other nonspecific abnormal finding of lung field; K76.9 Liver disease, unspecified
CPT/HCPCS: 36415; 71260; 80053; 80061; 84443; 85025; Q9967; 83721

== ENCOUNTER 2019-05-24 10:45 | Outpatient (CLI) | payer MEDICARE, OTHER ==
--- NOTE | 2019-05-25 08:43 | Mammography Report ---
Reason: ROUTINE MAMMO Procedure Date: 05/24/2019 Accession Number: [id number] / [id number] Procedure: MGN - Screening Mammo Dig Bilat CPT Code: Final Report FULL RESULT: EXAM: Screening Mammo Dig Bilat DATE: 05/24/2019 11:16 AM CLINICAL HISTORY: Screening encounter. History of early menses and benign right breast biopsy. Personal history of left breast cancer status post mastectomy in 2006. TECHNIQUE: (R) - Right CC and MLO views were obtained. COMPARISON: 03/23/2018 through 12/26/2012. PARENCHYMAL PATTERN: (D) - The breast(s) demonstrate(s) heterogeneously dense fibroglandular parenchyma. FINDINGS: Postbiopsy changes are again seen, essentially unchanged. There are no suspicious masses, calcifications, or areas of distortion. IMPRESSION: Benign findings. BI-RADS category 2. RECOMMENDATION: (ANNUAL) - Recommend routine annual screening mammography. BI-RADS CATEGORY: (2) - Benign Findings. STANDARD QUALIFYING STATEMENTS: 1. This examination was not reviewed with the aid of Computer-Aided Detection (CAD). 2. A negative or benign imaging report should not preclude biopsy if clinically suspicious findings are present. 3. Dense breasts may obscure an underlying neoplasm. 4. This examination was reviewed without the aid of 3D breast imaging (tomosynthesis).
== END 2019-05-24 10:46 | disposition home or self-care (01) ==
LOC: DI.N 10:45
DX: Z12.31 Encounter for screening mammogram for malignant neoplasm of breast (principal); Z85.3 Personal history of malignant neoplasm of breast; Z90.12 Acquired absence of left breast and nipple
CPT/HCPCS: 77067

== ENCOUNTER 2019-06-07 07:00 | Outpatient (CLI) | payer MEDICARE, OTHER ==
[2019-06-07 12:20] LABS: INR 1.1 (0.8-1.2); PT - PROTHROMBIN TIME 12.7 secs (9.9-12.6)
[2019-06-07 12:33] LABS: PARTIAL THROMBOPLASTIN TIME 26.9 secs (24.9-33.3)
== END 2019-06-07 23:59 | disposition home or self-care (01) ==
LOC: LAB.WCP 07:00
PROVIDERS: ATTEND Family Medicine
DX: J98.4 Other disorders of lung (principal)
CPT/HCPCS: 36415; 85014; 85049; 85610; 85730

== ENCOUNTER 2019-09-06 11:14 | Outpatient (CLI) | payer MEDICARE, OTHER ==
[2019-09-06 13:27] LABS: HGB - HEMOGLOBIN 12.9 g/dL (12.0-16.0); MEAN CORPUSCULAR HEMOGLOBIN 30.2 pg (27.0-31.0); MEAN CORPUSCULAR VOLUME 97.4 fL (81.0-99.0); MEAN PLATELET VOLUME 12.1 fL (7.9-10.8); RED BLOOD COUNT 4.27 10^6/uL (4.20-5.40); RED CELL DISTRIBUTION WIDTH 13.5 % (12.0-15.0); WHITE BLOOD COUNT 4.8 x10^3/uL (4.8-10.8)
[2019-09-06 13:53] LABS: CALCIUM 8.7 mg/dL (8.5-10.3)
== END 2019-09-06 23:59 | disposition home or self-care (01) ==
LOC: LAB.WCP 11:14
PROVIDERS: ATTEND Family Medicine
DX: R07.9 Chest pain, unspecified (principal); R06.02 Shortness of breath
CPT/HCPCS: 36415; 80048; 83880; 84484; 85027

== ENCOUNTER 2019-09-19 08:56 | Outpatient (CLI) | payer MEDICARE, OTHER ==
[2019-09-19] MEDS ORDERED: REGADENOSON 0.4 MG/5 ML SYRINGE IVP ONE ×2 (10:19→13:15)
[2019-09-19] MEDS ORDERED: AMINOPHYLLINE 250 MG/10 ML VIAL ONE (12:33)
--- NOTE | 2019-09-19 14:39 | CARDIAC PROCEDURE NOTE ---
DATE OF SERVICE: 09/19/2019 Physician: Esme Messina MD, [facility] INDICATION 1. Chest pain. 2. Hyperlipidemia. CARDIAC RISK FACTORS 1. Postmenopausal status. 2. Possibly hypertension (patient med list states Metoprolol and Tambocor). DESCRIPTION OF PROCEDURE: After signing informed consent, patient underwent a Lexiscan pharmaceutical stress test with nuclear myocardial perfusion imaging. RESTING HEART RATE: 52. PEAK HEART RATE: 75. RESTING BLOOD PRESSURE: 158/85. PEAK BLOOD PRESSURE: 182/95. Lexiscan was infused per protocol. Patient developed brief nausea. She had no chest pain or other symptoms. Normal heart rate and blood pressure response. RESTING EKG: Sinus bradycardia, rate 52, LVH voltage. EKG AT PEAK: No new ST segment or T-wave abnormalities develop. SUMMARY 1. Abnormal resting EKG. 2. No new EKG changes occurred to suggest ischemia. 3. Nuclear images reported separately. 4. This patient's cardiac risk based on all the above: Moderate. cc: DO Ellen Sinclair MD TD: 09/19/2019 14:30 MTDD
--- NOTE | 2019-09-21 12:28 | Nuclear Medicine Report ---
Reason: CHEST PAIN, LUNG CA, SVT Procedure Date: 09/19/2019 Accession Number: [id number] / [id number] Procedure: NM - Myocardial Perfusion STR/RST CPT Code: Final Report FULL RESULT: EXAM: SINGLE-ISOTOPE PHARMACOLOGICAL STRESS TEST WITH REGADENOSON. SINGLE-ISOTOPE AND ONE-DAY REST/STRESS MYOCARDIAL PERFUSION SCANS WITH TOMOGRAPHIC IMAGING, QUANTITATIVE ANALYSIS, WALL MOTION ANALYSIS AND CALCULATION OF EJECTION FRACTION. EXAM DATE: 09/19/2019 02:13 PM. CLINICAL HISTORY: CHEST PAIN, LUNG CA, SVT. COMPARISON: None. TECHNIQUE: After the intravenous administration of 10.2 mCi of Tc-99m sestamibi, a rest myocardial perfusion scan was done with tomography. Motion correction was applied when appropriate. After an appropriate delay, pharmacological stress was performed with the infusion of 0.4 mg regadenoson per protocol. According to protocol, 43.8 mCi of Tc-99m sestamibi was injected for stress myocardial perfusion scan. Motion correction was applied when appropriate. Gated tomographic images were obtained for wall motion analysis and computation of left ventricular ejection fraction. FINDINGS: Perfusion images: Left ventricular chamber size appears normal at rest and unchanged at stress. No convincing fixed perfusion deficits. No convincing reversible perfusion deficits. SSS 6, SRS 4, SDS 2. Gated images: No convincing focal wall motion abnormality. Calculated left ventricular EDV 52 mL, ESV 8 mL. The left ventricular ejection fraction is estimated at 84% (normal > 50%). IMPRESSION: 1. No convincing reversible perfusion deficits to indicate stress-induced ischemia. 2. No convincing fixed perfusion deficits. 3. Left ventricular ejection fraction of 84% (normal > 50%). Please correlate findings with stress ECG tracings and procedure notes. RADIA
== END 2019-09-19 08:57 | disposition home or self-care (01) ==
LOC: DI 08:56
PROVIDERS: ATTEND Family Medicine
DX: R07.9 Chest pain, unspecified (principal); R94.31 Abnormal electrocardiogram [ECG] [EKG]; I27.20 Pulmonary hypertension, unspecified; I47.1 Supraventricular tachycardia; C34.90 Malignant neoplasm of unspecified part of unspecified bronchus or lung; E78.5 Hyperlipidemia, unspecified; Z78.0 Asymptomatic menopausal state
CPT/HCPCS: 78452; 93017; 93306; A9500; J2785

== ENCOUNTER 2020-02-19 13:14 | Outpatient (CLI) | payer MEDICARE, OTHER | END 2020-02-19 13:15 | disposition critical access hospital (66) | LOC: EMS 13:14 | PROVIDERS: ATTEND Surgery | DX: R53.1 Weakness (principal); R06.00 Dyspnea, unspecified | CPT/HCPCS: A0425; A0427 ==

== ENCOUNTER 2020-02-19 13:32 | Observation (INO) | payer MEDICARE, OTHER ==
[2020-02-19] MEDS ORDERED: SODIUM CHLORIDE 0.9% 1,000 ML IV STA ×2 (14:22→15:27)
--- NOTE | 2020-02-19 14:43 | ED Physician Documentation ---
History of Present Illness - Stated complaint Stated Complaint: WEAKNESS - Chief complaint Chief Complaint: General - History obtained from History obtained from: Patient - Additonal information Additional information: Patient comes emergency department complaining of generalized weakness today. She states that she was walking in her house and had been feeling weak when suddenly she felt as though she could not go on anymore. She denies any chest pain at that time. She states she felt short of breath but this is something that she has been struggling with since being diagnosed with lung cancer. She tried to call for her but her is ill and could not hear her. She states she tried to go to the kitchen because she thought that getting to something to eat might help, but she was too weak generally to get there. She finally called her friend, who called 911 and had her brought here. Patient denies any fevers or chills. No dysuria. No back pain. No abdominal or chest pain. No cough or other symptoms of illness only. Patient has a history of Parkinson's disease and a stage I lung cancer for which she has been recently treated with chemotherapy. No other complaints at this time. Review of Systems Ten Systems: 10 systems reviewed and negative Constitutional: reports: Reviewed and negative Eyes: reports: Reviewed and negative Ears: reports: Reviewed and negative Nose: reports: Reviewed and negative Throat: reports: Reviewed and negative Cardiac: reports: Reviewed and negative Respiratory: reports: Dyspnea. denies: Cough GI: reports: Reviewed and negative : reports: Reviewed and negative Skin: reports: Reviewed and negative Musculoskeletal: reports: Reviewed and negative Neurologic: reports: Generalized weakness, Reviewed and negative. 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: Mastectomy HEENT: Cataracts - Present Medications Home Medications: Ambulatory Orders Medication Instructions Recorded Confirmed Rabeprazole Sodium [Aciphex] 20 mg PO DAILY 08/13/13 07/03/18 Simvastatin [Zocor] 20 mg PO DAILY 08/13/13 07/03/18 Escitalopram [Lexapro] 20 mg PO DAILY 06/22/18 07/03/18 Metoprolol Succinate [Toprol Xl] 25 mg PO ONCE 06/22/18 07/03/18 Aspirin 325 mg PO PRN 06/30/18 Carbidopa/Levodopa [Carbidopa-Levo 1 tab PO DAILY 06/30/18 07/03/18 ER 25-100 Tab] Donepezil [Aricept] 5 mg PO DAILY 06/30/18 07/03/18 Fexofenadine HCl [Octavia Allergy] 180 mg PO DAILY 06/30/18 07/03/18 Loperamide [Imodium] 2 mg PO DAILY 06/30/18 06/30/18 Hydrocodone/Acetaminophen [[place] 1 each PO Q6HR PRN #10 tablet 07/12/18 5-325 Tablet] - Allergies Allergies/Adverse Reactions: Allergies Allergy/AdvReac Type Severity Reaction Status Date / Time No Known Drug Allergies Allergy Verified 02/19/20 13:40 - Social History Does the pt smoke?: No Smoking Status: Never smoker Does the pt drink ETOH?: No Does the pt have substance abuse?: No PD ED PE NORMAL - Vitals Vital signs reviewed: Yes - General General: Alert and oriented X 3, No acute distress - HEENT HEENT: Atraumatic, PERRL, EOMI, Moist mucous membranes - Neck Neck: Supple, no meningeal sign - Cardiac Cardiac: No murmur, Other (Tachycardic rate regular rhythm no murmurs.) - Respiratory Respiratory: No respiratory distress, Clear bilaterally - Abdomen Abdomen: Soft, Non tender, Non distended - Back Back: No CVA TTP - Derm Derm: Normal color, Warm and dry, No rash - Extremities Extremities: No deformity, No edema, No calf tenderness / cord - Neuro Neuro: Normal speech, Other (Patient is alert and generally answers questions appropriately, though she does become confused sometimes. She has a general tremor. Otherwise no gross focal sensory or motor deficits.) - Psych Psych: Normal mood, Normal affect Results - Vitals Vitals: Vital Signs - 24 hr 02/19/20 02/19/20 13:38 14:57 Temperature 36.3 C L Heart Rate 129 H 126 H Respiratory 18 19 Rate Blood Pressure 97/72 111/95 H O2 Saturation 99 90 L Oxygen O2 Source Nasal cannula - Labs Labs: Laboratory Tests 02/19/20 02/19/20 02/19/20 14:55 14:55 15:00 WBC 6.3 RBC 4.06 L Hgb 12.5 Hct 39.2 MCV 96.6 MCH 30.8 MCHC 31.9 L RDW 13.0 Plt Count 215 MPV 10.6 Neut # (Auto) 4.9 Lymph # (Auto) 0.7 L Mccone # (Auto) 0.6 Eos # (Auto) 0.0 Baso # (Auto) 0.0 Absolute Nucleated RBC 0.00 Nucleated RBC % 0.0 Bld Gas Analysis Time Sample Site ABG pH ABG pCO2 ABG pO2 ABG HCO3 ABG Total CO2 ABG O2 Saturation ABG Base Excess Manjeet Test O2 Delivery Device O2 Liters/Min Sodium 137 Potassium 3.9 Chloride 102 Carbon Dioxide 25 Anion Gap 10.0 BUN 26 H Creatinine 1.1 H Estimated GFR (MDRD) 48 L Glucose 90 Lactic Acid 1.5 Calcium 8.8 Total Bilirubin 0.7 AST 13 ALT < 10 L Alkaline Phosphatase 57 Total Protein 6.5 L Albumin 3.7 Globulin 2.8 Albumin/Globulin Ratio 1.3 Lipase 36 Urine Color Urine Clarity Urine pH Ur Specific [place] Urine Protein Urine Glucose (UA) Urine Ketones Urine Occult Blood Urine Nitrite Urine Bilirubin Urine Urobilinogen Ur Leukocyte Esterase Ur Microscopic Review Urine Culture Comments 02/19/20 02/19/20 15:25 17:58 WBC RBC Hgb Hct MCV MCH MCHC RDW Plt Count MPV Neut # (Auto) Lymph # (Auto) Mccone # (Auto) Eos # (Auto) Baso # (Auto) Absolute Nucleated RBC Nucleated RBC % Bld Gas Analysis Time 1806 Sample Site RIGHT BRACHIAL ABG pH 7.52 H ABG pCO2 22 L* ABG pO2 129 H ABG HCO3 17.4 L ABG Total CO2 18.0 L ABG O2 Saturation 99 H ABG Base Excess -3.5 L Manjeet Test POSITIVE O2 Delivery Device NASAL CANNULA O2 Liters/Min 2.00 Sodium Potassium Chloride Carbon Dioxide Anion Gap BUN Creatinine Estimated GFR (MDRD) Glucose Lactic Acid Calcium Total Bilirubin AST ALT Alkaline Phosphatase Total Protein Albumin Globulin Albumin/Globulin Ratio Lipase Urine Color YELLOW Urine Clarity CLEAR Urine pH 7.0 Ur Specific [place] 1.010 Urine Protein NEGATIVE Urine Glucose (UA) NEGATIVE Urine Ketones NEGATIVE Urine Occult Blood NEGATIVE Urine Nitrite NEGATIVE Urine Bilirubin NEGATIVE Urine Urobilinogen 0.2 (NORMAL) Ur Leukocyte Esterase NEGATIVE Ur Microscopic Review NOT INDICATED Urine Culture Comments NOT INDICATED - Rads (name of study) CTA chest Radiology: Final report received, EMP read indepedently, See rad report (multiple bilateral PEs, no R heart strain) PD MEDICAL DECISION MAKING - ED course Complexity details: reviewed old records, reviewed results, re-evaluated patient, considered differential, d/w patient ED course: Pt was worked up for her generalized weakness with labs and UA initially, and treated with IV fluids. Her workup was unremarkable, and despite IV fluids, she remained in sinus tachycardia without much improvement. I was concerned about her vital signs and history of cancer, both of which raised concern for PE. As such, a CTA was performed, and this did show multiple bilateral PEs, though no R heart strain. Pt was given a dose of Lovenox 1.5 mg/kg. The pt's PESI score= 147 if allowing for a RA pulse ox less than 90. This indicated a very high level of risk, and as such, I felt the pt should be admitted to the hospital. I spoke with Dr. Hameed, who did agree to admit the pt on her service. I discussed the findings and need for admission and anticoagulation with the pt and her friend. Departure - Departure Disposition: [facility] DC/Xfer Clinical Impression: Pulmonary emboli Qualifiers: Pulmonary embolism type: unspecified Chronicity: acute Acute cor pulmonale presence: without acute cor pulmonale Qualified Code(s): I26.99 - Other pulmonary embolism without acute cor pulmonale Condition: Serious Discharge Date/Time: 02/19/20 19:43
[2020-02-19 15:10] LABS: BASOPHILS % (AUTO) 0.5 %; EOSINOPHILS % (AUTO) 0.5 %; HGB - HEMOGLOBIN 12.5 g/dL (12.0-16.0); LYMPHOCYTES # (AUTO) 0.7 10^3/uL (1.5-3.5); LYMPHOCYTES % (AUTO) 11.7 %; MEAN CORPUSCULAR HEMOGLOBIN 30.8 pg (27.0-31.0); MEAN CORPUSCULAR HGB CONC 31.9 g/dL (32.0-36.0); MEAN CORPUSCULAR VOLUME 96.6 fL (81.0-99.0); MEAN PLATELET VOLUME 10.6 fL (7.9-10.8); MONOCYTES # (AUTO) 0.6 10^3/uL (0.0-1.0); MONOCYTES % (AUTO) 9.3 %; NEUTROPHILS # (AUTO) 4.9 10^3/uL (1.5-6.6); NEUTROPHILS % (AUTO) 77.7 %; PLT - PLATELET COUNT 215 10^3/uL (130-450); RED BLOOD COUNT 4.06 10^6/uL (4.20-5.40); WHITE BLOOD COUNT 6.3 x10^3/uL (4.8-10.8)
[2020-02-19 15:21] LABS: ALBUMIN 3.7 g/dL (3.2-5.5); ALBUMIN/GLOBULIN RATIO 1.3 (1.0-2.2); ALKALINE PHOSPHATASE 57 IU/L (42-121); ALT ALANINE AMINOTRANSFERASE < 10 IU/L (10-60); AST ASPARTATE AMINOTRANSFERASE 13 IU/L (10-42); BILIRUBIN,TOTAL 0.7 mg/dL (0.2-1.0); BUN - BLOOD UREA NITROGEN 26 mg/dL (6-20); CALCIUM 8.8 mg/dL (8.5-10.3); CARBON DIOXIDE - CO2 25 mmol/L (21-32); CHLORIDE 102 mmol/L (101-111); CREATININE 1.1 mg/dL (0.4-1.0); GLUCOSE 90 mg/dL (70-100); LIPASE 36 U/L (22-51); SODIUM 137 mmol/L (135-145); TOTAL PROTEIN 6.5 g/dL (6.7-8.2)
--- NOTE | 2020-02-19 15:31 | XRAY Report ---
PROCEDURE: Chest 1 View X-Ray INDICATIONS: chest pain TECHNIQUE: One view of the chest was acquired. COMPARISON: CT chest dated 05/22/2019 and chest radiograph dated 01/08/2014 FINDINGS: Surgical changes and devices: None. Lungs and pleura: Previously described posterior medial right upper lobe spiculated nodule is better seen on comparison CT. Patchy opacities projecting over the bilateral medial upper lung zones near t he sternoclavicular joint likely related to overlapping structures of first rib costosternal articula tion. No pleural effusions or pneumothorax. Mediastinum: Mediastinal contours appear stable with tortuous course of the aortic arch. Heart size is normal. Bones and chest wall: No suspicious bony lesions. Overlying soft tissues appear unremarkable. IMPRESSION: Stable examination of the chest without acute cardiopulmonary abnormalities. Previously described posterior medial right upper lobe pulmonary nodule is better seen on comparison CT of 05/22/2019. Reviewed by: Renzo Rutledge MD on 02/19/2020 3:30 PM PDT Approved by: Renzo Rutledge MD on 02/19/2020 3:30 PM PDT Station ID: [id number]
[2020-02-19] MEDS ORDERED: IOVERSOL 320 100 ML VIAL IVP ONE ×2 (15:38→17:39)
[2020-02-19 15:43] LABS: BILIRUBIN,URINE NEGATIVE (NEGATIVE); GLUCOSE, URINE (UA) NEGATIVE (NEGATIVE); KETONES,URINE (UA) NEGATIVE (NEGATIVE); LEUKOCYTE ESTERASE, URINE NEGATIVE (NEGATIVE); NITRITE,URINE NEGATIVE (NEGATIVE); OCCULT BLOOD,URINE NEGATIVE (NEGATIVE); PROTEIN,URINE NEGATIVE (NEGATIVE); UROBILINOGEN,URINE 0.2 (NORMAL) E.U./dL (NORMAL)
[2020-02-19 15:47] LABS: CLARITY,URINE CLEAR (CLEAR)
[2020-02-19] MEDS ORDERED: ENOXAPARIN 80 MG/0.8 ML SYRINGE SUBQ STA (17:07)
--- NOTE | 2020-02-19 17:12 | CT Report ---
PROCEDURE: ANGIO CHEST W/WO INDICATIONS: dyspnea, cancer, tachycardia CONTRAST: IV CONTRAST: Optiray 320 ml: 40 PO CONTRAST: *NO PO CONTRAST TECHNIQUE: After the administration of intravenous contrast, 2 mm thick sections acquired from the pulmonary api moe to the posterior costophrenic angles. 3-dimensional maximum intensity projection (MIP) coronal a nd sagittal reformats were then acquired through the thorax. For radiation dose reduction, the follow ing was used: automated exposure control, adjustment of mA and/or kV according to patient size. COMPARISON: 05/22/2019 FINDINGS: Image quality: Excellent. Pulmonary arteries: There are acute pulmonary emboli involving the proximal segmental left lower lob e pulmonary arteries as well as the proximal basilar segments of the right lower lobe. There are also small pulmonary emboli noted in the distal lobar into the proximal segmental right upper lobe pulmon misti arteries. No evidence for acute right-sided heart strain. No large central pulmonary artery embol i. Lungs and pleura: Previously described irregular 4.4 cm right upper lobe pulmonary mass has increased in size now measuring approximately 5.0 x 3.4 cm in transverse dimension (measured on axial image 65 , series 6) and approximately 7.1 cm in craniocaudal dimension (measured on coronal image 20, series 8). There is surrounding groundglass opacities. There is spiculated margins as before. Associated bro nchiectasis. It is closely associated with segment of the right upper lobe pulmonary artery containin g previously described pulmonary emboli. Remainder of the right lung is clear. The left lung appears clear. No pleural effusions or pneumothorax. Central and peripheral airways are patent. Mediastinum: Heart size is normal, without pericardial effusion. Apical scarring calcifications of t he coronary arteries. No mediastinal or hilar adenopathy. Thoracic aorta is normal in caliber and en hancement. Atherosclerotic calcifications of the aortic arch. Stable tortuosity of the aortic arch. Esophagus is normal in caliber, without hiatal hernia. Bones and chest wall: No suspicious bony lesions. Ribs and thoracic spine appear intact throughout. The thyroid is normal. No axillary or supraclavicular adenopathy. Abdomen: Visualized upper abdominal solid organs appear normal in the early arterial phase of enhanc ement. IMPRESSION: 1. Acute pulmonary emboli involving the proximal basilar segmental pulmonary arteries of both the lef t lower lobe and right lower lobe. There is also acute pulmonary emboli involving a segment of the di stal lobar and proximal segmental pulmonary artery of the right upper lobe medially. 2. Interval increase in size of irregular, spiculated right upper lobe pulmonary mass now measuring 5 .0 x 3.4 x 7.1 cm versus 4.4 cm in maximum dimension on prior study. This also correlates with thromb osed segment of right upper lobe pulmonary artery. The size of this mass may be somewhat exaggerated secondary to associated acute inflammation/edema versus possible early pulmonary infarction. Short in terval follow-up CT is recommended. Findings were discussed with Dr. Lawson of the emergency department staff at 1706 hrs. Reviewed by: Renzo Rutledge MD on 02/19/2020 5:11 PM PDT Approved by: Renzo Rutledge MD on 02/19/2020 5:11 PM PDT Station ID: [id number]
[2020-02-19 18:07] LABS: ABG PH 7.52 (7.35-7.45)
[2020-02-19 18:08] LABS: ABG BASE EXCESS -3.5 mmol/L (-2.0-3.0); ABG HCO3 17.4 mmol/L (22.0-26.0); ABG OXYGEN SATURATION 99 % (94-98); ABG PO2 129 mmHg (80-100); ALLEN TEST POSITIVE
[2020-02-19 18:09] LABS: ABG PCO2 22 mmHg (34-45)
[2020-02-19] MEDS ORDERED: ONDANSETRON 4 MG/2 ML VIAL IVP PRN (18:16)
[2020-02-19] MEDS ORDERED: oxyCODONE 5 MG TABLET PO PRN (18:16)
[2020-02-19] MEDS ORDERED: ACETAMINOPHEN 325 MG TABLET PO PRN (18:16)
[2020-02-19] MEDS ORDERED: SODIUM CHLORIDE FLUSH 0.9% 10 ML SYRINGE IVP PRN (18:16)
[2020-02-19] MEDS ORDERED: METOPROLOL 5 MG/5 ML VIAL IVP PRN (18:21)
--- NOTE | 2020-02-19 18:26 | HISTORY & PHYSICAL EXAMINATION ---
Chief Complaint - Chief Complaint Chief Complaint: SOB History of Present Illness - Admitted From Admitted From:: ER - History Obtained From Records Reviewed: [facility] History obtained from: pt and pt's friend, pt allow her friend to participate her care Exam Limitations: pt's demention, and parkinson's - History of Present Illness HPI Comment/Other: This is a 79 years old female with a past medical history significant for lung cancer, Parkinson's, dementia, left breast cancer since 2006 with mastectomy, hypertension, hyperlipidemia, anxiety and depression Who presented ER complaint shortness of breathing. pt is a poor historian underline with dementia and Parkinson's. pt's friend whom pt report she has been for fifty years, pt let her participate her care, provide help and provide some medical history. pt report s he suddenly felt as though she could not go on anymore when she was walking in her house. She report she felt short of breath since being diagnosed with lung cancer. She denies fever, chill, any chest pain at the time. CTA of the chest reveals Acute pulmonary embolism involved the proximal basilar segment pulmonary artery of both left lower lobe and right lower lobe, Also involving a segment of distal lobar and proximal segment pulmonary artery of right upper lobe medially, No evidence for active right-sided heart strain or no large central pulmonary artery emboli, increase In the size of irregular spiculated right upper lobe pulmonary mass. Routine laboratory testing was unremarkable. ABG show patient had a pH 7.52, hyperventilated with PO2 129 at 2 liter of O2. In the ER patient is afebrile, tachycardia at heart rate 126. IT is difficult to measure patient oxygen saturation because patient is shaking from Parkinson's. Discussed the care goal with the patient, patient request full code. History - Past Medical History Cardiovascular: reports: Hypertension, High cholesterol Respiratory: reports: None Neuro: reports: Parkinson's Endocrine/Autoimmune: reports: None GI: reports: None : reports: None HEENT: reports: None Psych: reports: Depression, Anxiety Musculoskeletal: reports: None Derm: reports: None MRSA Hx?: No - Past Surgical History General: reports: Colonoscopy Ortho: reports: Rotator cuff repair /PARAMEDICAL AIDE: reports: Mastectomy HEENT: reports: Cataracts - Family & Social History Family History: Mother: , Father: Family History Comment/Other: Patient report her mother at age 98 with age- related, she does not know her father medical history, she had 3 daughters Social History Notes: she denies history of smoking, alcohol, drug issue. She is living at [place] with her . Meds/Allgy - Home Medications Home Medications: Ambulatory Orders Medication Instructions Recorded Confirmed Rabeprazole Sodium [Aciphex] 20 mg PO DAILY 08/13/13 07/03/18 Simvastatin [Zocor] 20 mg PO DAILY 08/13/13 07/03/18 Escitalopram [Lexapro] 20 mg PO DAILY 06/22/18 07/03/18 Metoprolol Succinate [Toprol Xl] 25 mg PO ONCE 06/22/18 07/03/18 Aspirin 325 mg PO PRN 06/30/18 Carbidopa/Levodopa [Carbidopa-Levo 1 tab PO DAILY 06/30/18 07/03/18 ER 25-100 Tab] Donepezil [Aricept] 5 mg PO DAILY 06/30/18 07/03/18 Fexofenadine HCl [Octavia Allergy] 180 mg PO DAILY 06/30/18 07/03/18 Loperamide [Imodium] 2 mg PO DAILY 06/30/18 06/30/18 Hydrocodone/Acetaminophen [[place] 1 each PO Q6HR PRN #10 tablet 07/12/18 5-325 Tablet] - Allergies Allergies/Adverse Reactions: Allergies Allergy/AdvReac Type Severity Reaction Status Date / Time No Known Drug Allergies Allergy Verified 02/19/20 13:40 Review of Systems - Constitutional Constitutional: denies: Fever, Chills, Diaphoresis, Night sweats - Eyes Eyes: denies: Pain, Vision loss - Ears, Nose & Throat Ears, Nose & Throat: denies: Ear pain, Vertigo, Nosebleeds, Sore throat - Cardiovascular Cariovascular: denies: Irregular heart rate, Palpitations, Chest pain, Lightheadedness, Syncope, Exertional dyspnea - Respiratory Respiratory: reports: SOB at rest, SOB with exertion. denies: Cough, Wheezing, Snoring, Orthopnea, Pleuritic pain - Gastrointestinal Gastrointestinal: denies: Abdominal pain, Diarrhea, Rectal bleeding, Black stools, Bloody stools, Nausea, Vomiting, Ted blood emesis - Genitourinary Genitourinary: denies: Dysuria, Hematuria - Musculoskeletal Musculoskeletal: denies: Muscle pain, Back pain, Muscle aches - Integumentary Integumentary: denies: Rash - Neurological Neurological: denies: Focal weakness, Headache, Dizziness, Numbness, Pre- existing deficit, Abnormal gait, Seizures, Incoordination, Slurred speech - Psychiatric Psychiatric: denies: Suicidal, Delusions, Hallucinations - Hematologic/Lymphatic Hematologic/Lymphatic: denies: Anemia, Bruising Exam - Vital Signs Vital Signs: Vital Signs x48h Temp Pulse Resp BP Pulse Ox 02/19/20 14:57 126 H 19 111/95 H 90 L 02/19/20 13:38 36.3 C L 129 H 18 97/72 99 - Physical Exam General Appearance: positive: Alert, Mild distress. negative: Lethargic Eyes Bilateral: positive: Normal inspection, PERRL, No lid inflammation ENT: positive: ENT inspection nml, No signs of dehydration. negative: Purulent nasal drainage Neck: positive: Nml inspection, Thyroid nml, Trachea midline. negative: Thyromegaly, Stiff neck, Tracheal deviation Respiratory: positive: Chest non-tender. negative: Wheezes, Rhonchi Cardiovascular: positive: No murmur, Tachycardia. negative: Bradycardia, Systolic murmur, Diastolic murmur Abdomen: positive: Non-tender, Nml bowel sounds, No distention. negative: Tenderness, Guarding, Rebound Back: positive: Nml inspection Skin: positive: Color nml, No rash, Warm, Dry. negative: Cyanosis, Diaphoresis, Pallor Extremities: positive: Non-tender, Nml appearance. negative: Calf tenderness Neurologic/Psychiatric: positive: Sensation nml. negative: Weakness, Sensory loss, Facial droop, Slurred/abnml speech, Depressed mood/affect Conclusion/Plan - Problem List (1) Pulmonary emboli Conclusion/Plan: CTA show patient has bilaterally basilar pulmonary emboli and right upper lobe pulmonary emboli, But no evidence for acute right side heart strain, no large central pulmonary artery emboli. Clinically patient present shortness of breathing and tachycardia. Patient also need 2 L oxygen in the ER to remain sats. but he denies chest pain, denies vomiting of blood. Patient also has history of lung cancer and large mass in the right upper lobe. ER started with Lovenox, According to update, we will switch to Eliquis. Is very difficult for patient with Parkinson and shaking the hand to inject of Lovenox.We will also try to update patient medical condition to patient oncologist or radiologist. Qualifiers: Pulmonary embolism type: unspecified Chronicity: acute Acute cor pulmonale presence: without acute cor pulmonale Qualified Code(s): I26.99 - Ot her pulmonary embolism without acute cor pulmonale (2) Lung mass Conclusion/Plan: Patient's right large mass in the lung increases in the size. Patient is under chemo treatment Now under with Dr. Ellen Ríos. Patient will have CAT scan for monitor patient treatment progress, so we will try to update patient condition to Dr. Ríos (3) Parkinson disease Conclusion/Plan: Patient has a history of Parkinson disease, we will resume patient home medication as confirmed by pharmacy (4) Shortness of breath Conclusion/Plan: Patient report she has shortness of breathing in the home, it improved in the ER, ABG show patient had hyperventilation with a PO2 129 and elevated pH.We will try to wean off oxygen. Closely monitor patient with vital signs and Oximetry. (5) Tachycardia Conclusion/Plan: Patient has a tachycardia at the ER with heart rate about 126. We will order EKG and follow-up. Likely from combination of patient has underlying pulmonary embolism and lung cancer plus some anxiety. We will continue monitor technician patient, we will add metoprolol intravenous as needed. (6) CKD (chronic kidney disease) Conclusion/Plan: Patient has a history of CKD stage II-III. 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
[2020-02-19] MEDS: CARBIDOPA/LEVODOPA ER 50 MG/200 MG TABLET PO SCH (20:56)
[2020-02-19] MEDS: SODIUM CHLORIDE 0.9% 1,000 ML IV SCH (20:56)
[2020-02-19] MEDS: FLECAINIDE 50 MG TABLET PO SCH (20:56)
[2020-02-19] MEDS ORDERED: DONEPEZIL 5 MG TABLET PO SCH (21:00)
[2020-02-19] MEDS ORDERED: ENOXAPARIN 60 MG/0.6 ML SYRINGE SUBQ SCH (21:00)
[2020-02-20] MEDS: SODIUM CHLORIDE FLUSH 0.9% 10 ML SYRINGE IVP SCH ×2 (00:44→08:17)
[2020-02-20 05:14] LABS: BASOPHILS % (AUTO) 0.5 %; EOSINOPHILS # (AUTO) 0.1 10^3/uL (0.0-0.7); EOSINOPHILS % (AUTO) 2.3 %; LYMPHOCYTES # (AUTO) 0.8 10^3/uL (1.5-3.5); LYMPHOCYTES % (AUTO) 20.9 %; MEAN CORPUSCULAR HEMOGLOBIN 31.2 pg (27.0-31.0); MEAN CORPUSCULAR HGB CONC 31.8 g/dL (32.0-36.0); MEAN PLATELET VOLUME 10.6 fL (7.9-10.8); MONOCYTES # (AUTO) 0.6 10^3/uL (0.0-1.0); MONOCYTES % (AUTO) 14.8 %; NEUTROPHILS # (AUTO) 2.4 10^3/uL (1.5-6.6); NEUTROPHILS % (AUTO) 61.2 %; PLT - PLATELET COUNT 192 10^3/uL (130-450); RED BLOOD COUNT 3.53 10^6/uL (4.20-5.40); RED CELL DISTRIBUTION WIDTH 13.2 % (12.0-15.0)
[2020-02-20 05:24] LABS: CALCIUM 8.3 mg/dL (8.5-10.3); MAGNESIUM 2.1 mg/dL (1.7-2.8); PHOSPHORUS 3.3 mg/dL (2.5-4.6)
[2020-02-20] MEDS ORDERED: PANTOPRAZOLE 40 MG TABLET PO SCH (07:00)
[2020-02-20] MEDS: SODIUM CHLORIDE 0.9% 1,000 ML IV SCH (07:38)
[2020-02-20] MEDS: CARBIDOPA/LEVODOPA ER 50 MG/200 MG TABLET PO SCH (08:13)
[2020-02-20] MEDS: FLECAINIDE 50 MG TABLET PO SCH (08:13)
[2020-02-20] MEDS ORDERED: APIXABAN 5 MG TABLET PO SCH (09:00)
[2020-02-20 11:25] VITALS: BP 127/70
[2020-02-20] MEDS ORDERED: CARBIDOPA/LEVODOPA ER 50 MG/200 MG TABLET PO SCH ×3 (11:42→17:00)
[2020-02-20] MEDS ORDERED: CARBIDOPA/LEVODOPA 25 MG/100 MG TABLET PO SCH (13:00)
--- NOTE | 2020-02-20 13:00 | PHARMACY PROGRESS NOTE ---
- Best Possible Medication History Admit Date and Time: 02/19/201815 Processed by: Pharmacy Medication History completed: Yes Patient Interview: Completed Secondary Source(s): Other family member (PATIENT INTERVIEWED BY PHARMACY. [place] UNABLE TO CONFIRM VERBALLY, PATIENTS DAUGHTER WAS PRESENT AND HAD MEDICATION LIST. HOME MEDICATIONS WERE CONFIRMED USING DAUGHTERS LIST), Physician records, Pharmacy records, Insurance records As the person ultimately responsible for medication therapy, providers are able to order a medication from an existing home medication list in [facility] via the "Reconcile Routine" prior to Confirmation of that medication by product support consultant. Such practice is discouraged except when the physician, in their clinical judgment, deems that a medical need exists for a medication without regard to previous use.
--- NOTE | 2020-02-20 13:25 | Discharge Plan ---
Discharge Plan Problem Reviewed?: Yes Disposition: Home, Self Care Condition: Poor Prescriptions: Apixaban [Eliquis] 5 mg PO BID #60 tablet Apixaban [Eliquis] 10 mg PO BID #24 tablet Diet: Regular Activity Restrictions: Activity as Tolerated Shower Restrictions: No (fall precaution) Instruction Topics: Apixaban oral tablets, Embolism Pulmonary Health Concerns: pulmonary emboli, Lung mass Plan of Treatment: You are found to have pulmonary emboli. After treatment in hospital, you are hemodynamic stable, no oxygen needed now. you are prescribed another 6 days of 10mg bid Eliquis, then followup with 5mg bid Eliquis. Advise you continue followup with your oncologist closely. Your oncologist was updated your new medical conditions. Care Goals: stabilization and improvement of your medical conditions. Assessment: Discussed the care plan with you and your daughter, you understood. Additional Instructions or Follow Up instructions: You may followup with your PCP in one week, followup with your oncologist as out-pt. Should your symptoms return or worsen, you may present ER or call 911 for help. No Smoking: If you smoke, Please STOP! Call for help. Follow-up with: Eve Belle DO [Primary Care Provider] -
--- NOTE | 2020-02-20 13:42 | DISCHARGE SUMMARY ---
Discharge Summary Admit Date: 02/19/20 Discharge Date: 02/20/20 Discharging Provider: Aj Lynn Primary Care Provider: Dr. Jaimie Belle Condition at Discharge: Poor Discharge Disposition: 01 Home, Self Care Discharge Facility Name: home - DIAGNOSES Discharge Diagnoses with Status of Each Condition: (1) Pulmonary emboli stable. After Patient Was treated in the hospital, patient's Shortness of breathing is resolved as her baseline status. Patient has 98% sats on room air, Patient's tachycardia also was resolved. Patient has no acute respiratory distress, patient does not need oxygen to go home. Patient had Eliquis 10 mg twice daily on today then patient was prescribed 6 days 10 mg twice daily, follow-up with 5 mg twice daily for 30 days, patient will follow up with PCP and oncologist continue to treat. Discussed the care plan with patient and pt's daughter, also consult with social work to help the patient, and answered for all patient daughter's questions and concerns. (2) Lung mass Patient's right large mass in the lung increases in the size. Called to patient's oncologist/radiologist Dr. Ellen Ríos, updated patient condition to Dr. Ríos. Patient had appointment on this month' to see Dr. Ríos. Dr. Ríos will keep the same appointment, she will request our image study for her. (3) Parkinson disease stable, Patient has a history of Parkinson disease, resume patient home medication (4) Shortness of breath resolved as pt's baseline, pt has lung cancer. (5) Tachycardia resolved. (6) CKD (chronic kidney disease) stable. - HPI History of Present Illness: This is a 79 years old female with a past medical history significant for lung c ancer, Parkinson's, dementia, left breast cancer since 2005 with mastectomy, hypertension, hyperlipidemia, anxiety and depression Who presented ER complaint shortness of breathing. pt is a poor historian underline with dementia and Parkinson's. pt's friend whom pt report she has been for fifty years, pt let her participate her care, provide help and provide some medical history. pt report she suddenly felt as though she could not go on anymore when she was walking in her house. She report she felt short of breath since being diagnosed with lung cancer. She denies fever, chill, any chest pain at the time. CTA of the chest reveals Acute pulmonary embolism involved the proximal basilar segment pulmonary artery of both left lower lobe and right lower lobe, Also involving a segment of distal lobar and proximal segment pulmonary artery of right upper lobe medially, No evidence for active right-sided heart strain or no large central pulmonary artery emboli, increase In the size of irregular spiculated right upper lobe pulmonary mass. Routine laboratory testing was unremarkable. ABG show patient had a pH 7.52, hyperventilated with PO2 129 at 2 liter of O2. In the ER patient is afebrile, tachycardia at heart rate 126. IT is difficult to measure patient oxygen saturation because patient is shaking from Parkinson's. Discussed the care goal with the patient, patient request full code. - HOSPITAL COURSE Hospital Course: Patient was admitted for shortness of breathing, patient was found to have bilateral basilar pulmonary embolism and a right upper embolism in CTA of the chest. Patient was given Lovenox in ER, then patient was switched to Eliquis. After treatment patient's short of breathing is resolved as her baseline, and patient had a 98% sats on room air, patient's tachycardia is resolved. Patient become hemodynamic stable. Patient has 10mg eliquis bid on today, is prescribed another 6 days Eliquis 10 mg twice daily, then 30 days 5 mg twice daily. Consult with social work to help patient. Call patient oncologist Dr. Ríos, Updated tino bermudezvi's medical condition and treatment plan. Discussed the care plan with the patient's daughter, special patient's new medication Eliquis regiment, Answer all her question and concerns. pt have Covid 19 test today per pt's daughter's request, advise pt and her family followup [facility] guideline for Covid 19 isolation, hospital will contact with pt after we have her test result. - ALLERGIES Allergies/Adverse Reactions: Allergies Allergy/AdvReac Type Severity Reaction Status Date / Time No Known Drug Allergies Allergy Verified 02/19/20 13:40 - MEDICATIONS Home Medications: Ambulatory Orders Medication Instructions Recorded Confirmed Metoprolol Succinate [Toprol Xl] 12.5 mg PO QPM 06/22/18 02/20/20 Apixaban [Eliquis] 5 mg PO BID #60 tablet 02/20/20 Apixaban [Eliquis] 10 mg PO BID #24 tablet 02/20/20 Carbidopa/Levodopa [Carbidopa-Levo 1 tab PO QID 02/20/20 02/20/20 ER 50-200 Tab] Donepezil HCl [Aricept] 10 mg PO DAILY 02/20/20 02/20/20 Escitalopram [Lexapro] 20 mg PO DAILY 02/20/20 02/20/20 Flecainide [Tambocar] 50 mg PO BID 02/20/20 02/20/20 Loratadine [Claritin] 10 mg PO DAILY 02/20/20 02/20/20 Memantine [Namenda] 5 mg PO 1700 02/20/20 02/20/20 Simvastatin [Zocor] 10 mg PO QPM 02/20/20 02/20/20 Venlafaxine [Effexor] 37.5 mg PO BID 02/20/20 02/20/20 - PHYSICAL EXAM AT DISCHARGE General Appearance: positive: No acute distress, Alert. negative: Lethargic Eyes Bilateral: positive: Normal inspection, PERRL, No lid inflammation ENT: positive: ENT inspection nml, No signs of dehydration. negative: Purulent nasal drainage Neck: positive: Nml inspection, Thyroid nml, Trachea midline. negative: Thyromegaly, Tracheal deviation Respiratory: positive: Chest non-tender, No respiratory distress. negative: Wheezes, Rales Cardiovascular: positive: Regular rate & rhythm, No murmur. negative: Tachycardia, Bradycardia, Systolic murmur, Diastolic murmur Peripheral Pulses: positive: 2+ Abdomen: positive: Non-tender, Nml bowel sounds, No distention. negative: Tenderness, Guarding, Rebound Back: positive: Nml inspection. negative: CVA tenderness (R), CVA tenderness (L) Skin: positive: Color nml, No rash, Warm, Dry. negative: Cyanosis, Diaphoresis, Pallor Extremities: positive: Non-tender, Full ROM, Nml appearance. negative: Calf tenderness, Raymon's sign/cords Neurologic/Psychiatric: positive: Motor nml, Sensation nml, Mood/affect nml. negative: Weakness, Sensory loss, Facial droop, Slurred/abnml speech, Depressed mood/affect - LABS Result Diagrams: 02/20/20 04:55 02/20/20 04:55 - FOLLOW UP Follow Up: You are found to have pulmonary emboli. After treatment in hospital, you are hemodynamic stable, no oxygen needed now. you are prescribed another 6 days of 10mg bid Eliquis, then followup with 5mg bid Eliquis. Advise you continue followup with your oncologist closely. Your oncologist was updated your new medical conditions. You may followup with your PCP in one week, followup with your oncologist as out-pt. Should your symptoms return or worsen, you may present ER or call 911 for help. - TIME SPENT Time Spent in Discharge (Minutes): 30
[2020-02-20] MEDS ORDERED: ENOXAPARIN 60 MG/0.6 ML SYRINGE SUBQ SCH (14:00)
[2020-02-27] MEDS ORDERED: APIXABAN 5 MG TABLET PO SCH (09:00)
== END 2020-02-20 14:20 | disposition home or self-care (01) ==
LOC: EDUNIT# → ED 13:32 → MS2 18:16
PROVIDERS: ADMIT Nurse Practitioner Gerontology; ATTEND Nurse Practitioner Gerontology
DX: I26.99 Other pulmonary embolism without acute cor pulmonale (principal); C34.91 Malignant neoplasm of unspecified part of right bronchus or lung; G20 Parkinson's disease; F02.80 Dementia in other diseases classified elsewhere, unspecified severity, without behavioral disturbance, psychotic disturbance, mood disturbance, and anxiety; I12.9 Hypertensive chronic kidney disease with stage 1 through stage 4 chronic kidney disease, or unspecified chronic kidney disease; N18.30 Chronic kidney disease, stage 3 unspecified; E78.5 Hyperlipidemia, unspecified; F32.9 Major depressive disorder, single episode, unspecified; F41.9 Anxiety disorder, unspecified; Z20.828 Contact with and (suspected) exposure to other viral communicable diseases; Z79.82 Long term (current) use of aspirin; Z79.899 Other long term (current) drug therapy; Z85.3 Personal history of malignant neoplasm of breast; Z90.12 Acquired absence of left breast and nipple
CPT/HCPCS: 36415; 36600; 71045; 71275; 80048; 80053; 81003; 82803; 83605; 83690; 83735; 84100; 85025; 93005; 96372; 99285; A9270; G0378; J1650; Q9967; U0004; 81001; 87086

== ENCOUNTER 2020-04-10 14:58 | Outpatient (CLI) | payer MEDICARE, OTHER ==
--- NOTE | 2020-04-10 15:39 | XRAY Report ---
PROCEDURE: Hand 3 View LT INDICATIONS: LEFT HAND PAIN TECHNIQUE: 3 views of the hand(s) acquired. COMPARISON: Not available. FINDINGS: Bones: No fractures or dislocations. No suspicious bony lesions. Osteoarthritic changes are presen t, severe at the triscaphe joint, moderate at the first metacarpal joint and multiple interphalangeal joints. Soft tissues: No suspicious soft tissue calcifications. IMPRESSION: 1. No fracture or dislocation. 2. Osteoarthritic changes as described. Reviewed by: Ismael Lowe MD on 04/10/2020 3:37 PM PST Approved by: Ismael Lowe MD on 04/10/2020 3:37 PM PST Station ID: [id number]
== END 2020-04-10 23:59 | disposition home or self-care (01) ==
LOC: DI.WCP 14:58
PROVIDERS: ATTEND Family Medicine
DX: M19.032 Primary osteoarthritis, left wrist (principal); M19.042 Primary osteoarthritis, left hand

== ENCOUNTER 2020-05-15 11:54 | Emergency (ER) | payer MEDICARE, OTHER ==
--- NOTE | 2020-05-15 12:39 | XRAY Report ---
PROCEDURE: Wrist 4 View LT INDICATIONS: GLF, swelling pain TECHNIQUE: 4 views of the wrist were acquired. COMPARISON: Left hand radiographs dated 04/10/2020 FINDINGS: Bones: There is an impacted fracture of the distal radial metaphysis with minimal dorsal angulation. No definite extension to the articular surface is identified. There is generalized osteopenia. Degene rative changes are seen at the first carpometacarpal and triscaphe joints. Scaphoid view: The scaphoid appears grossly intact. Soft tissues: No suspicious soft tissue calcifications. IMPRESSION: Mildly impacted and angulated fracture of the distal radial metaphysis. Reviewed by: Matthias Walker MD on 05/15/2020 12:37 PM [facility] [[email or web address]] Approved by: Matthias Walker MD on 05/15/2020 12:37 PM [facility] [[email or web address]] Station ID: [id number]
--- NOTE | 2020-05-15 12:51 | ED Physician Documentation ---
History of Present Illness - Stated complaint Stated Complaint: GLF - Chief complaint Chief Complaint: General - History obtained from History obtained from: Patient - History of Present Illness Timing: Last night - Additonal information Additional information: 80-year-old female who has a history of Parkinson's disorder recent diagnosis of pulmonary embolus on Eliquis comes to the emergency department after a ground- level fall yesterday evening. She was walking around the kitchen island, hit the trash can and fell backwards striking her head on the ground. There was no loss of consciousness but the patient is here with left wrist pain and swelling as well as tailbone pain. Patient is ambulatory at baseline with a shuffled gait and the known and unchanged parkinsonian tremor sicne the fall no vomiting, no slurred speech, facial droop or weakness in arms or legs Review of Systems Constitutional: denies: Fever, Chills Eyes: reports: Reviewed and negative Ears: reports: Reviewed and negative Nose: reports: Reviewed and negative Throat: reports: Reviewed and negative Cardiac: reports: Reviewed and negative GI: reports: Reviewed and negative : reports: Reviewed and negative Skin: denies: Rash, Lesions, Abrasion (s) Musculoskeletal: denies: Neck pain, Back pain Neurologic: reports: Head injury. 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: Mastectomy HEENT: Cataracts - Present Medications Home Medications: Ambulatory Orders Medication Instructions Recorded Confirmed Metoprolol Succinate [Toprol Xl] 12.5 mg PO QPM 06/22/18 05/15/20 Apixaban [Eliquis] 5 mg PO BID #60 tablet 02/20/20 05/15/20 Carbidopa/Levodopa [Carbidopa-Levo 1 tab PO QID 02/20/20 05/15/20 ER 50-200 Tab] Donepezil HCl [Aricept] 10 mg PO DAILY 02/20/20 05/15/20 Escitalopram [Lexapro] 20 mg PO DAILY 02/20/20 05/15/20 Flecainide [Tambocar] 75 mg PO BID 02/20/20 05/15/20 Loratadine [Claritin] 10 mg PO DAILY 02/20/20 05/15/20 Memantine [Namenda] 5 mg PO BID 02/20/20 05/15/20 Simvastatin [Zocor] 10 mg PO QPM 02/20/20 05/15/20 Venlafaxine [Effexor] 37.5 mg PO BID 02/20/20 05/15/20 - Allergies Allergies/Adverse Reactions: Allergies Allergy/AdvReac Type Severity Reaction Status Date / Time No Known Drug Allergies Allergy Verified 05/15/20 12:08 - Social History Does the pt smoke?: No Smoking Status: Never smoker Does the pt drink ETOH?: No Does the pt have substance abuse?: No PD ED PE EXPANDED - General General: Alert, No acute distress, Other (thin appearance, baseline tremor at rest) - HEENT HEENT: Atraumatic, PERRL, EOMI, Ears normal - Eyes Eyes: PERRL, EOMI - Neck Neck: Supple w/out meningeal sx. No: Adenopathy, Soft tissue TTP, Bony TTP, Limited ROM (Full range of motion in all planes without pain on axial loading) - Cardiac Cardiac: Regular Rate, Radial strong equal, Pedal strong equal, Cap refill < 2 sec - Respiratory Respiratory: Clear to ausultation abraham. No: Distress, Labored - Back Back: Vertebral tenderness (lower lumbar tendernss without swelling, crepitus) - Extremities Extremities: Left wrist ( mild tendernss over distal radius. swelling dorsum wrist. Reduced ROM. + snuffbox tenderness. 2+ radial pulse) - Neuro Neuro: Alert and Oriented X 3, CNII-XII intact, Other (Baseline resting tremor) - GCS Eye Opening: Spontaneous Motor: Obeys Commands Verbal: Oriented Total: 15 Results - Vitals Vitals: Vital Signs - 24 hr 05/15/20 11:58 Temperature 36.1 C L Heart Rate 78 Respiratory 16 Rate Blood Pressure 122/78 O2 Saturation 99 Oxygen O2 Source Room air - Rads (name of study) left wrist Radiology: Final report received (Mildly impacted and angulated fracture of the distal radial metaphysis) CT head Radiology: Final report received (No CT evidence of acute intracranial pathology. No acute skull fracture. Age-appropriate atrophy with mild white matter chronic and small vessel ischemic changes) CT lumbar Radiology: Final report received (No acute lumbar spine fracture or dislocation. Chronic compression deformity at L1. Multiple levels of degenerative disc bulge. No gross acute sacral or coccygeal fracture.), See rad report PD MEDICAL DECISION MAKING - ED course Complexity details: reviewed results, re-evaluated patient, considered differential, d/w patient, d/w family ED course: 80-year-old female who has a history of Parkinson's as well as recent diagnosis of new pulmonary embolus on Eliquis presents to the emergency department after ground-level fall yesterday evening in which she struck her head. She had no loss of consciousness. She is reporting lower lumbar and sacral pain as well as left wrist pain. X-ray of the wrist shows a mildly displaced and angulated left radial fracture. She also had associated snuffbox tenderness. She was placed in a sugar tong with abducted thumb spica. She will be referred to orthopedics for follow-up. Routine splint care and return precautions discussed. CT of the head shows no acute bleeds or intracranial pathology. CT of the lumbar spine did show an old L1 compression deformity. There are also multilevel degenerative disc disease changes. no red flags related to back pain. Recommend tylenol for analgesia. Defer opoids given risk for falls She is discharged home in stable condition. Will continue follow-up with her primary care provider. Emergent return precautions discussed Departure - Departure Disposition: 01 Home, Self Care Clinical Impression: Anticoagulated, Fall from ground level, Parkinsons disease Distal radius fracture, left Qualifiers: Encounter type: sequela Fracture type: closed Fracture morphology: unspecified fracture morphology Qualified Code(s): S52.502S - Unspecified fracture of the lower end of left radius, sequela Condition: Stable Record reviewed to determine appropriate education?: Yes Instructions: ED Fx Upper Ext Follow-Up: [facility] [Provider Group] - Within 1 week Eve Belle DO [Primary Care Provider] - Comments: Radha was seen today after a fall at home last night. Because she is anticoagulated on Eliquis we did do a CT of the head to rule out any type of bruising or bleeding in the brain. There were no findings that were abnormal for her age. The CT of her lumbar spine did show an old L1 compression fracture. There is also multilevel degenerative disc disease changes. However there is no new fracture identified in the lumbar spine or the coccyx/sacrum. The x-ray of her left wrist does show a distal radial fracture. She also has pain in her snuff box area. We have placed her in a temporary splint. This is the type of splint that should not get wet. If it gets wet, she has numbness or tingling in her hands, or develops any fevers or discoloration of her fingers please return immediately to the emergency department. Please call the orthopedic department tomorrow to arrange follow-up of this fracture. I also recommend that you schedule follow-up with Dr. Belle. Given her history of Parkinson's and falls, she may benefit from further physical or occupational therapy.
--- NOTE | 2020-05-15 13:18 | CT Report ---
PROCEDURE: HEAD WO INDICATIONS: fall, anticoagulated TECHNIQUE: Noncontrast 4.5 mm thick angled axial sections acquired from the foramen magnum to the vertex. For r adiation dose reduction, the following was used: automated exposure control, adjustment of mA and/or kV according to patient size. COMPARISON: None FINDINGS: Image quality: Excellent. CSF spaces: Basal cisterns are patent. No extra-axial fluid collections. The ventricles are symmet kulwinder in size and shape. Brain: No intracranial bleeds or masses. There is cerebral volume loss for age, with resultant vent ricular and sulcal prominence. There are periventricular and deep white matter chronic small vessel ischemic changes. There is intracranial internal carotid artery atherosclerosis. Skull and face: Calvarium and visualized facial bones appear intact, without suspicious lesions. Sinuses: Visualized sinuses and mastoids are clear. IMPRESSION: 1. No CT evidence of acute intracranial pathology. No acute skull fracture. 2. Age-appropriate atrophy and mild white matter chronic small vessel ischemic changes. Reviewed by: Kannan Ruffin MD on 05/15/2020 1:17 PM PST Approved by: Kannan Ruffin MD on 05/15/2020 1:17 PM PST Station ID: [id number]
--- NOTE | 2020-05-15 13:30 | CT Report ---
PROCEDURE: LUMBAR SPINE WO INDICATIONS: fall; r/o fx TECHNIQUE: Noncontrast 3 mm thick sections acquired from the T12 level to the sacrum. Sagittal and coronal refo rmats were constructed. For radiation dose reduction, the following was used: automated exposure co ntrol, adjustment of mA and/or kV according to patient size. COMPARISON: CT of chest dated 05/22/2019 and 11/10/2018.. FINDINGS: Image quality: Diagnostic. Patient motion is noted. Bones: There is mild rightward curvature of lumbar spine centered at L3 level. Chronic appearing rig ht-sided superior endplate compression deformity at L1 level is seen unchanged from prior studies. Th ere is grade 1 anterolisthesis of L3 on L4. No acute vertebral body compression fractures. No gross acute sacral or coccygeal fracture is seen although evaluation of lower sacrum is slightly degraded d ue to patient motion. No suspicious lytic or blastic bony lesions. Central spinal caliber is of norm al overall caliber. No pars defects. T12-L1: Degenerative endplate changes are seen. No significant canal stenosis or neural foraminal shaheen rowing is noted. L1-L2: Unremarkable. L2-L3: Decreased intervertebral disc space and degenerative endplate changes are seen. Mild diffus e disc bulge and bilateral facet arthrosis is noted with mild central canal stenosis, no significant neural foraminal narrowing.. L3-L4: Degenerative endplate changes are seen. Broad-based disc bulge and bilateral facet arthrosis is noted with hypertrophy of ligamentum flavum. Moderate central canal stenosis is seen. There is mi ld bilateral neuroforaminal narrowing. L4-L5: Degenerative endplate changes and decreased intervertebral disc space is noted. Broad-based disc bulge and bilateral facet arthrosis is seen causing moderate central canal stenosis and left wor se in right bilateral neural foraminal narrowing. L5-S1: Decreased intervertebral disc space and degenerative endplate changes are seen. Broad-based disc bulge and bilateral facet arthrosis is seen with mild to moderate central canal stenosis and mod erate bilateral neural foraminal ring. Soft tissues: No retroperitoneal masses or hematomas. Visualized aorta is normal in caliber. Slight ly lobulated hypodense area involving posterior segment of right hepatic lobe is seen and measures up to 2.3 x 2.1 cm in size and 15 Hounsfield unit in density which may represent hepatic cyst versus he mangioma. IMPRESSION: 1. No acute lumbar spine fracture or dislocation. Chronic appearing right-sided superior endplate com pression deformity at L1 level. Mild rightward scoliosis of lumbar spine centered at L3 level. Grade 1 anterolisthesis of L3 on L4. No gross pars defect is seen. 2. Degenerative disc bulge and bilateral facet arthrosis throughout lumbar spine causing mild to mode rate central canal stenosis and bilateral neural foramina narrowing more prominent at L4-5 and L5-S1 levels. 3. No gross acute sacral or coccygeal fracture. Motion artifact is noted slightly limits the evaluati on of lower sacrum. 4. Incidentally noted of hypodense area within right hepatic lobe and may represent hepatic cyst or h emangioma. Reviewed by: Kannan Ruffin MD on 05/15/2020 1:28 PM PST Approved by: Kannan Ruffin MD on 05/15/2020 1:28 PM PST Station ID: [id number]
[2020-05-15 14:37] VITALS: BP 119/58
--- OUTSIDE RECORDS SUMMARY | 2020-05-21 01:09 | EXTERNAL MEDICAL SUMMARY RPT | Continuity of Care Document ---
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 2013-01-03 10:48 SCRN MAMMO-HIGH RISK PT, [facility] MALIGNANT NEOPLASM OF BREAST 2013-03-20 10:06 UTERINE LEIOMYOMA NOS [facility] 2013-03-20 10:06 URGENCY OF URINATION [facility] 2013-08-13 09:10 IDIO PERIPH NEURPTHY NOS [facility] 2013-08-13 09:10 OSTEOPOROSIS NOS [facility] 2013-08-13 09:10 HX OF BREAST MALIGNANCY [facility] 2013-08-13 09:10 CHEMOTHERAPY FOLLOW-UP [facility] 2013-09-26 09:30 LEUKOCYTOPENIA, UNSPECIFIED [facility] 2013-09-26 09:30 DYSTHYMIC DISORDER [facility] 2013-09-26 09:30 OTH MED,LT,CURRENT USE [facility] 2013-11-12 11:23 CARDIOMEGALY [facility] 2013-11-12 11:23 PALPITATIONS [facility] 2013-11-12 11:23 ACQUIRED ABSENCE OF BREAST AND [facility] NIPPLE 2014-01-08 10:15 SHORTNESS OF BREATH [facility] 2014-01-08 10:15 HX OF BREAST MALIGNANCY [facility] 2014-01-08 10:21 HX OF BREAST MALIGNANCY [facility] 2014-01-08 10:21 HX-HEALTH HAZARDS NEC [facility] 2014-01-08 10:21 ACQUIRED ABSENCE OF BREAST AND [facility] NIP[facility] 2014-01-08 10:21 COMB TREATMENT FOLLOW-UP [facility] 2014-01-08 10:21 SCRN MAMMO-HIGH RISK PT, [facility] MALIGNANT NEOPLASM OF BREAST 2014-06-12 12:30 VITAMIN D DEFICIENCY NOS [facility] 2014-06-12 12:30 HYPERLIPIDEMIA NEC/NOS [facility] 2014-06-12 12:30 LEUKOCYTOPENIA, UNSPECIFIED [facility] 2014-06-12 12:30 MEMORY LOSS [facility] 2014-06-12 12:30 OTH MED,LT,CURRENT USE [facility] 2014-06-18 16:38 MEMORY LOSS [facility] 2014-06-18 16:38 HX OF BREAST MALIGNANCY [facility] 2014-08-12 09:30 CARDIAC DYSRHYTHMIAS NEC [facility] 2014-08-12 09:30 OSTEOPOROSIS NOS [facility] 2014-08-12 09:30 ALTERED MENTAL STATUS [facility] 2014-08-12 09:30 HX OF BREAST MALIGNANCY [facility] 2014-08-12 09:30 ACQUIRED ABSENCE OF BREAST AND [facility] NIP[facility] 2014-08-12 09:30 COMB TREATMENT FOLLOW-UP [facility] 2014-10-08 10:05 BONE CARTILAGE DIS NOS [facility] 2014-10-15 14:30 URIN TRACT INFECTION NOS [facility] 2014-10-18 11:06 HEMATURIA, UNSPECIFIED [facility] 2014-10-18 11:06 ABDOMINAL PAIN, UNSPECIFIED SITE [facility] 2014-12-31 08:00 ABDOMINAL PAIN, UNSPECIFIED SITE [facility] 2015-03-12 10:05 ENCNTR SCREEN MAMMOGRAM FOR [facility] MALIGNANT NEOPLASM OF BREAST 2015-03-12 10:05 PERSONAL HISTORY OF MALIGNANT [facility] NEOPLASM OF BREAST 2015-03-12 10:05 ACQUIRED ABSENCE OF LEFT BREAST [facility] AND NIPPLE 2015-03-24 13:23 PSYCHOPHYSIOLOGIC INSOMNIA [facility] 2015-03-24 13:23 HYPERSOMNIA, UNSPECIFIED [facility] 2015-03-24 13:23 OTHER SLEEP DISORDERS [facility] 2015-03-29 20:54 PERIODIC LIMB MOVEMENT DISORDER [facility] 2015-04-23 14:25 [facility]IA[facility] 2015-04[facility]23 14:25 PERIODIC LIMB MOVEMENT DISORDER [facility] 2015-04-23 14:25 CARDIAC ARRHYTHMIA, UNSPECIFIED [facility] 2015-11-24 08:49 PARKINSON'S DISEASE [facility] 2015-11-26 12:00 PARKINSON'S DISEASE [facility] 2016-09-07 11:00 DECREASED WHITE BLOOD CELL COUNT, [facility] UNSPECIFIED 2016-09-07 11:00 HYPERLIPIDEMIA, UNSPECIFIED [facility] 2016-09-07 11:00 OTHER AMNESIA [facility] 2016-10-05 09:56 ENCNTR SCREEN MAMMOGRAM FOR [facility] MALIGNANT NEOPLASM OF BREAST 2016-10-05 09:56 PERSONAL HISTORY OF MALIGNANT [facility] NEOPLASM OF BREAST 2016-10-05 09:56 ACQUIRED ABSENCE OF LEFT BREAST [facility] AND NIPPLE 2017-01-30 21:30 DIARRHEA, [facility] 2017-09-19 11:31 VITAMIN D DEFICIENCY, UNSPECIFIED [facility] 2017-09-19 11:31 HYPERLIPIDEMIA, UNSPECIFIED [facility] 2017-09-19 11:31 PARKINSON'S DISEASE [facility] 2017-10-31 08:00 PAIN IN RIGHT TOE(S) [facility] 2017-10-31 08:00 DIARRHEA, [facility]PECIF[facility] 2017-11-01 08:00 DIARRHEA, UNSPECIFIED [facility] 2018-03-23 10:44 ENCNTR FOR FOLLOW-UP EXAM AFTER [facility] TRTMT FOR MALIGNANT NEOPLASM 2018-03-23 10:44 ENCNTR SCREEN MAMMOGRAM FOR [facility] MALIGNANT NEOPLASM OF BREAST 2018-03-23 10:44 PERSONAL HISTORY OF MALIGNANT [facility] NEOPLASM OF BREAST 2018-04-07 08:00 DIARRHEA, UNSPECIFIED [facility] 2018-04-08 12:58 UNSPECIFIED ABDOMINAL PAIN [facility] 2018-04-08 12:58 NAUSEA WITH VOMITING, UNSPECIFIED [facility] 2018-04-08 12:58 DIARRHEA, UNSPECIFIED [facility] 2018-04-08 12:58 PROCEDURE AND TREATMENT NOT [facility] CARRIED OUT, UNSPECIFIED REASON 2018-04-12 09:41 DVTRCLI OF LG INT W/O PERFORATION [facility] OR ABSCESS W/O BLEEDING 2018-06-22 09:26 DEMENTIA IN OTH DISEASES CLASSD [facility] ELSWHR W/O BEHAVRL DISTURB 2018-06-22 09:26 ANXIETY DISORDER, UNSPECIFIED [facility] 2018-06-22 09:26 PARKINSON'S DISEASE [facility] 2018-06-22 09:26 AGE-RELATED NUCLEAR CATARACT, [facility] RIGHT EYE 2018-06-22 09:26 ESSENTIAL (PRIMARY) HYPERTENSION [facility] 2018-06-22 09:26 UNSPECIFIED ATRIAL FIBRILLATION [facility] 2018-07-03 13:43 [facility] ELSWHR W/O BEHAVRL DISTURB 2018-07-03 13:43 PARKINSON'S DISEASE [facility] 2018-07-03 13:43 UMBILICAL HERNIA WITHOUT [facility] OBSTRUCTION OR GANGRENE 2018-07-03 13:43 RECTAL POLYP [facility] 2018-07-03 13:43 OTHER HEMORRHOIDS [facility] 2018-07-03 13:43 ENCOUNTER FOR SCREENING FOR [facility] MALIGNANT NEOPLASM OF COLON 2018-07-12 13:43 PARKINSON'S DISEASE [facility] 2018-07-12 13:43 ESSENTIAL (PRIMARY) HYPERTENSION [facility] 2018-07-12 13:43 PLEURODYNIA [facility] 2018-07-12 13:43 OTHER NONSPECIFIC ABNORMAL [facility] FINDING OF LUNG FIELD 2018-07-12 13:43 MULTIPLE FRACTURES OF RIBS, LEFT [facility] SIDE, INIT FOR CLOS FX 2018-07-12 13:43 UNSPECIFIED FALL, INITIAL [facility] ENCOUNTER 2018-07-12 13:[address] IN UNSP NON-INSTITUT [facility] (PRIVATE) RESIDENCE PLACE 2018-08-10 09:00 DEMENTIA IN OTH DISEASES CLASSD [facility] ELSWHR W/O BEHAVRL DISTURB 2018-08-10 09:00 ANXIETY DISORDER, UNSPECIFIED [facility] 2018-08-10 09:00 PARKINSON'S DISEASE [facility] 2018-08-10 09:00 AGE-RELATED NUCLEAR CATARACT, [facility] LEFT EYE 2018-08-10 09:00 ESSENTIAL (PRIMARY) HYPERTENSION [facility] 2018-08-10 09:00 UNSPECIFIED ATRIAL FIBRILLATION [facility] 2018-11-10 13:24 OTHER DISORDERS OF LUNG [facility] 2018-11-10 13:24 SOLITARY PULMONARY NODULE [facility] 2019-05-22 09:51 HYPERLIPIDEMIA, UNSPECIFIED [facility] 2019-05-22 09:51 LIVER DISEASE, UNSPECIFIED [facility] 2019-05-22 09:51 CHRONIC KIDNEY DISEASE, STAGE 3 [facility] (MODERATE) 2019-05-22 09:51 OTHER NONSPECIFIC ABNORMAL [facility] FINDING OF LUNG FIELD 2019-05-24 10:45 ENCNTR SCREEN MAMMOGRAM FOR [facility] MALIGNANT NEOPLASM OF BREAST 2019-05-24 10:45 PERSONAL HISTORY OF MALIGNANT [facility] NEOPLASM OF BREAST 2019-05-24 10:45 ACQUIRED ABSENCE OF LEFT BREAST [facility] AND NIPPLE 2019-06-07 07:00 OTHER DISORDERS OF LUNG [facility] 2019-09-06 11:14 SHORTNESS OF BREATH [facility] 2019-09-06 11:14 CHEST PAIN, UNSPECIFIED [facility] 2019-09-19 08:56 MALIGNANT NEOPLASM OF UNSP PART [facility] OF UNSP BRONCHUS OR LUNG 2019-09-19 08:56 HYPERLIPIDEMIA, UNSPECIFIED [facility] 2019-09-19 08:56 PULMONARY HYPERTENSION, [facility] UNSPECIFIED 2019-09-19 08:56 SUPRAVENTRICULAR TACHYCARDIA [facility] 2019-09-19 08:56 CHEST PAIN, UNSPECIFIED [facility] 2019-09-19 08:56 ABNORMAL ELECTROCARDIOGRAM [ECG] [facility] [EKG] 2019-09-19 08:56 ASYMPTOMATIC MENOPAUSAL STATE [facility] 2020-02-19 13:14 DYSPNEA, UNSPECIFIED [facility] 2020-02-19 13:[address] [facility] 2020-02-19 18:16 MALIGNANT NEOPLASM OF UNSP PART [facility] OF RIGHT BRONCHUS OR LUNG 2020-02-19 18:16 HYPERLIPIDEMIA, [facility]PECIFIED [facility] 2020-02-19 18:16 DEMENTIA IN OT DISEASES CLASSD [facility] ELSWHR W/O BEHAVRL DISTURB 2020-02-19 18:16 MAJOR DEPRESSIVE DISORDER, SINGLE [facility] EPISODE, UNSPECIFIED 2020-02-19 18:16 ANXIETY DISORDER, UNSPECIFIED [facility] 2020-02-19 18:16 PARKINSON'S DISEASE [facility] 2020-02-19 18:16 HYPERTENSIVE CHRONIC KIDNEY [facility] DISEASE W STG 1-4/UNSP CHR KDNY 2020-02-19 18:16 OTHER PULMONARY EMBOLISM WITHOUT [facility] ACUTE COR PULMONALE 2020-02-19 18:16 CHRONIC KIDNEY DISEASE, STAGE 3 [facility] UNSPECIFIED 2020-02-19 18:16 [facility] 2020-02-19 18:16 SNAPPER ON (CURRENT) USE OF [facility] ASPIRIN 2020-02-19 18:16 OTHER PENITENTIARY (CURRENT) DRUG [facility] THERAPY 2020-02-19 18:16 PERSONAL HISTORY OF MALIGNANT [facility] NEOPLASM OF BREAST 2020-02-19 18:16 ACQUIRED ABSENCE OF LEFT BREAST [facility] AND NIPPLE 2020-02-28 00:00:00 Other persistent mental disorders [facility] Primary Care due to conditions classified [facility] elsewhere 2020-02-28 00:00:00 Other pulmonary embolism and [facility] Primary Care infarction Aro[facility] 2020-02-28 00:00:00 Loss of weight [facility] misti Care [facility] 2020-02-28 00:00:00 Unspecified dementia without [facility] Primary Care behavioral disturbance [facility] 2020-02-28 00:00:00 Other pulmonary embolism without [facility] Primary Care acute cor pulmonale A[facility] 2020-02-28 00:00:00 Abnormal weight loss [facility] imary Care [facility] 2020-02-28 00:00:00 Alcohol intake [facility] misti Care [facility] 2020-02-28 00:00:00 Health-related behavior [facility] Care [facility] 2020-02-28 00:00:00 Tobacco use and exposure [facility] Primary Care [facility] 2020-02-28 00:00:00 [facility] 2020-02-28 00:00:00 Never smoker [facility] 2020-02-28 00:00:00 Dementia [facility] 2020-02-28 00:00:00 Pulmonary embolism [facility] 2020-02-28 00:00:00 Alcohol use [facility] 2020-02-28 00:00:00 Tobacco smoking status NHIS [facility] Primary Care [facility] 2020-04-01 00:00:00 [facility] 2020-04-01 00:00:00 [facility]peated [facility] 2020-04-01 00:00:00 Alcohol intake [facility] 2020-04-01 00:00:00 Health-related behavior [facility] 2020-04-01 00:00:00 Tobacco [facility] 2020-04-01 00:00:00 Exercise [facility] 2020-04-01 00:00:00 Never smoker [facility] 2020-04-01 00:00:00 Unexplained recurrent falls [facility] 2020-04-01 00:00:00 Alcohol use [facility] 2020-04-01 00:00:00 Tobacco smoking status NHIS [facility] 2020-04-10 00:00:00 Pain in limb [facility] 2020-04-10 00:00:00 HAND MIN 3 VIEW [facility] 2020-04-10 00:00:00 Pain in left hand [facility] 2020-04-10 00:00:00 Alcohol intake [facility] 2020-04-10 00:00:00 Health-related behavior [facility] 2020-04-10 00:00:00 [facility] 2020-04-10 00:00:00 Exercise [facility] 2020-04-10 00:00:00 Never smoker [facility] 2020-04-10 00:00:00 Hand pain [facility] 2020-04-10 00:00:00 Alcohol use [facility] 2020-04-10 00:00:00 Tobacco smoking status NHIS [facility] 2020-04-10 14:58 PRIMARY OSTEOARTHRITIS, LEFT [facility] WRIST 2020-04-10 14:58 PRIMARY OSTEOARTHRITIS, LEFT HAND [facility] 2020-04-25 15:44 Supraventricular tachycardia [facility] 2020-05-16 00:00:00 Unspecified fracture of the lower [facility] end of left radius, sequela [facility] 2020-05-16 00:00:00 Fracture of distal end of radius [facility] Primary Care [facility] 2020-05-19 00:00:00 Fracture, closed, colles' [facility] Primary Care [facility] 2020-05-19 00:00:00 Colles' fracture of left radius, [facility] Primary Care initial encounter for closed [facility] fracture 2020-05-19 00:00:00 Alcohol intake [facility] 2020-05-19 00:00:00 Health-related behavior [facility] Care [facility] 2020-05-19 00:00:00 Tobacco use and exposure [facility] Primary Care [facility] 2020-05-19 00:00:00 Exercise [facility] 2020-05-19 00:00:00 Never smoker [facility] 2020-05-19 00:00:00 Closed Colles' fracture [facility] Care [facility] 2020-05-19 00:00:00 [facility] 2020-05-19 00:00:00 Tobacco smoking status NHIS Alysia [facility] Primary Care [facility] Allergies date description facility PENICILLIN G POTASSIUM [facility] NO KNOWN ENVIRONMENTAL ALLERGIES [facility] NO KNOWN ALLERGIES [facility] NO ALLERGY INFORMATION AVAILABLE [facility] NO KNOWN ALLERGIES [facility] No Known Drug Allergies [facility] NO KNOWN ENVIRONMENTAL ALLERGIES [facility] CODEINE [facility] MORPHINE [facility] NO ALLERGY INFORMATION AVAILABLE [facility] PENICILLINS [facility] NO KNOWN ALLERGIES [facility] No Known Drug Allergies [facility] AMLODIPINE-BENAZEPRIL [facility] ATORVASTATIN [facility] AZITHROMYCIN [facility] EZETIMIBE [facility] ROSUVASTATIN CALCIUM [facility] NO KNOWN ALLERGIES [facility] No Known Drug Allergies [facility] Medications date description facility 2020-02-21 00:00:00 null [facility] 2020-02-21 00:00:00 null [facility] 2020-02-21 00:00:00 null [facility] 2020-02-21 00:00:00 null [facility] 2020-02-21 00:00:00 null [facility] 2020-02-21 00:00:00 null [facility] 2020-02-21 00:00:00 null [facility] 2020-02-21 00:00:00 null [facility] 2020-02-21 00:00:00 APIXABAN [facility] 2020-02-21 00:00:00 VENLAFAXINE HCL [facility] 2020-02-21 00:00:00 MEMANTINE HCL [facility] 2020-02-21 00:00:00 DONEPEZIL HCL [facility] 2020-02-21 00:00:00 APIXABAN [facility] 2020-02-21 00:00:00 VENLAFAXINE HCL [facility] 2020-02-21 00:00:00 MEMANTINE HCL [facility] 2020-02-21 00:00:00 DONEPEZIL HCL [facility] 2020-04-01 00:00:00 null [facility] 2020-04-01 00:00:00 null [facility] 2020-04-01 00:00:00 FLECAINIDE ACETATE [facility] 2020-04-01 00:00:00 FLECAINIDE ACETATE [facility] Procedures date description facility 2020-04-10 00:00:00 HAND MIN 3 VIEW [facility] date description facility 2020-04-10 00:00:00 EKG Interpretation [facility] date description facility 2020-04-10 00:00:00 [facility] Social History date description facility 2020-02-28 00:00:00 Never smoker [facility] date description facility 2020-04-01 00:00:00 Never smoker [facility] date description facility 2020-04-10 00:00:00 Never smoker [facility] date description facility 2020-05-19 00:00:00 Never smoker [facility] Social History date description facility 2020-02-28 00:00:00 Never smoker [facility] date description facility 2020-04-01 00:00:00 Never smoker [facility] date description facility 2020-04-10 00:00:00 Never smoker [facility] date description facility 2020-05-19 00:00:00 Never smoker [facility] date description facility [phone]
== END 2020-05-15 14:00 | disposition home or self-care (01) ==
LOC: ED 11:54
DX: S52.592A Other fractures of lower end of left radius, initial encounter for closed fracture (principal); W18.39XA Other fall on same level, initial encounter; Y93.01 Activity, walking, marching and hiking; Y92.000 Kitchen of unspecified non-institutional (private) residence as the place of occurrence of the external cause; G20 Parkinson's disease; F02.80 Dementia in other diseases classified elsewhere, unspecified severity, without behavioral disturbance, psychotic disturbance, mood disturbance, and anxiety; I26.99 Other pulmonary embolism without acute cor pulmonale; Z79.01 Long term (current) use of anticoagulants; M51.36 Other intervertebral disc degeneration, lumbar region; M48.061 Spinal stenosis, lumbar region without neurogenic claudication; M51.26 Other intervertebral disc displacement, lumbar region; I10 Essential (primary) hypertension
CPT/HCPCS: 70450; 72131; 99284

== ENCOUNTER 2020-06-30 11:36 | Outpatient (CLI) | payer MEDICARE, OTHER ==
--- NOTE | 2020-06-30 15:23 | XRAY Report ---
PROCEDURE: Wrist 3 View LT INDICATIONS: COLLES FX OF L RADIUS TECHNIQUE: 3 views of the wrist were acquired. COMPARISON: 05/15/2020 FINDINGS: Grossly unchanged alignment of impacted distal radial fracture with callus formation. Scattered subch ondral sclerosis and spurring. First CMC and triscaphe joint degeneration. Chondrocalcinosis is again noted in the ulnar carpal compartment IMPRESSION: Unchanged alignment of healing distal radial fracture Reviewed by: Watson Jacob MD on 06/30/2020 3:22 PM PST Approved by: Watson Jacob MD on 06/30/2020 3:22 PM PST Station ID: [id number]
== END 2020-06-30 23:59 | disposition home or self-care (01) ==
LOC: DI.N 11:36
PROVIDERS: ATTEND Orthopaedic Surgery
DX: S52.532A Colles' fracture of left radius, initial encounter for closed fracture (principal)

== ENCOUNTER 2020-07-12 13:27 | Emergency (ER) | payer MEDICARE, OTHER ==
--- NOTE | 2020-07-12 13:55 | ED Physician Documentation ---
PD HPI CHEST PAIN - Stated complaint Stated Complaint: HIGH HEART RATE - Chief complaint Chief Complaint: Cardiac - History obtained from History obtained from: Patient, Family - Additional information Additional information: This is a teresa 80-year-old woman with history of SVT on flecainide and metoprolol, history of lung cancer related PE on DOAC who for the last 3 to 4 days has had on and off chest tightness and rapid heart rate consistent with prior episodes of SVT. She had a Holter monitor completed about a week ago, they do not know the results yet, they plan to follow-up with her offset pressman soon. They went to urgent care and she was referred here from there. She did not have vital signs taken while she was there but she was symptomatic there. On arrival her pulse is 59. Now she is much less symptomatic and feeling better. 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 CONSULTANT: Mastectomy HEENT: Cataracts - Present Medications Home Medications: Ambulatory Orders Medication Instructions Recorded Confirmed Metoprolol Succinate [Toprol Xl] 12.5 mg PO QPM 06/22/18 05/15/20 Apixaban [Eliquis] 5 mg PO BID #60 tablet 02/20/20 05/15/20 Carbidopa/Levodopa [Carbidopa-Levo 1 tab PO QID 02/20/20 05/15/20 ER 50-200 Tab] Donepezil HCl [Aricept] 10 mg PO DAILY 02/20/20 05/15/20 Escitalopram [Lexapro] 20 mg PO DAILY 02/20/20 05/15/20 Flecainide [Tambocar] 75 mg PO BID 02/20/20 05/15/20 Memantine [Namenda] 5 mg PO BID 02/20/20 05/15/20 Simvastatin [Zocor] 10 mg PO QPM 02/20/20 05/15/20 Venlafaxine [Effexor] 37.5 mg PO BID 02/20/20 05/15/20 - Allergies Allergies/Adverse Reactions: Allergies Allergy/AdvReac Type Severity Reaction Status Date / Time No Known Drug Allergies Allergy Verified 05/15/20 12:08 - Social History Does the pt smoke?: No Smoking Status: Never smoker Does the pt drink ETOH?: No Does the pt have substance abuse?: No PD ED PE NORMAL - Vitals Vital signs reviewed: Yes - General General: Other (Parkinsonian tremor, Quiet voice) - HEENT HEENT: PERRL - Neck Neck: Supple, no meningeal sign, No bony TTP - Cardiac Cardiac: RRR, No murmur - Respiratory Respiratory: No respiratory distress, Clear bilaterally - Abdomen Abdomen: Soft, Non tender - Back Back: No CVA TTP, No spinal TTP - Derm Derm: Normal color, Warm and dry - Extremities Extremities: No edema, No calf tenderness / cord - Neuro Neuro: Alert and oriented X 3, No motor deficit, No sensory deficit, Normal speech - Psych Psych: Normal mood, Normal affect Results - Vitals Vitals: Vital Signs - 24 hr 07/12/20 07/12/20 07/12/20 13:34 13:51 14:30 Temperature 36.3 C L Heart Rate 59 L 57 L 56 L Respiratory 20 15 11 L Rate Blood Pressure 147/97 H 130/100 H 144/85 H O2 Saturation 100 98 Oxygen O2 Source Room air - EKG (time done) 1335 Rate: Rate (enter#) (59) Rhythm: NSR Intervals: RBBB Ischemia: Q waves, Non specific changes. No: ST elevation c/w ischemia Computer interpretation: Agree with computer - Labs Labs: Laboratory Tests 07/12/20 07/12/20 07/12/20 14:05 14:05 14:05 WBC 5.4 RBC 4.05 L Hgb 12.9 Hct 39.0 MCV 96.3 MCH 31.9 H MCHC 33.1 RDW 13.4 Plt Count 175 MPV 10.9 H Neut # (Auto) 3.9 Lymph # (Auto) 0.9 L [place] # (Auto) 0.6 Eos # (Auto) 0.0 Baso # (Auto) 0.0 Absolute Nucleated RBC 0.00 Nucleated RBC % 0.0 Sodium 137 Potassium 4.1 Chloride 100 L Carbon Dioxide 28 Anion Gap 9.0 BUN 26 H Creatinine 1.1 H Estimated GFR (MDRD) 48 L Glucose 76 Calcium 9.2 Magnesium 2.0 Troponin I High Sens 3.9 PD MEDICAL DECISION MAKING - ED course ED course: 80-year-old woman presents with resolved palpitations and chest tightness. She is therapeutically anticoagulated, not hypoxic, not tachycardic so doubt PE. Her EKG is nonischemic in sinus rhythm now. Her daughter showed me the results of prior Holter monitoring she spends most of the time in sinus rhythm and is occasionally in SVT, ACS is considered but unlikely given intermittent nonexertional symptoms and nonischemic EKG. Most likely resolved SVT. Will check electrolytes and monitor her for a bit. She very much does not want to be here. She had no ectopy or arrhythmia while here. Departure - Departure Disposition: 01 Home, Self Care Clinical Impression: Anticoagulated, SVT (supraventricular tachycardia) Condition: Stable Record reviewed to determine appropriate education?: Yes Instructions: ED Tachycardia Pat PSVT Comments: Presume another episode of SVT although hard to say since we did not see it. Follow-up with your offset pressman for further evaluation and treatment. Continue current medications. Discharge Date/Time: 07/12/20 15:10
[2020-07-12 14:14] LABS: BASOPHILS % (AUTO) 0.6 %; EOSINOPHILS % (AUTO) 0.6 %; HGB - HEMOGLOBIN 12.9 g/dL (12.0-16.0); LYMPHOCYTES # (AUTO) 0.9 10^3/uL (1.5-3.5); LYMPHOCYTES % (AUTO) 16.7 %; MEAN CORPUSCULAR HEMOGLOBIN 31.9 pg (27.0-31.0); MEAN CORPUSCULAR HGB CONC 33.1 g/dL (32.0-36.0); MEAN CORPUSCULAR VOLUME 96.3 fL (81.0-99.0); MEAN PLATELET VOLUME 10.9 fL (7.9-10.8); MONOCYTES # (AUTO) 0.6 10^3/uL (0.0-1.0); MONOCYTES % (AUTO) 10.5 %; NEUTROPHILS # (AUTO) 3.9 10^3/uL (1.5-6.6); NEUTROPHILS % (AUTO) 71.2 %; PLT - PLATELET COUNT 175 10^3/uL (130-450); RED BLOOD COUNT 4.05 10^6/uL (4.20-5.40); RED CELL DISTRIBUTION WIDTH 13.4 % (12.0-15.0); WHITE BLOOD COUNT 5.4 x10^3/uL (4.8-10.8)
[2020-07-12 14:21] LABS: CALCIUM 9.2 mg/dL (8.5-10.3); CREATININE 1.1 mg/dL (0.4-1.0); POTASSIUM 4.1 mmol/L (3.5-5.0)
[2020-07-12 14:34] VITALS: BP 144/85
== END 2020-07-12 15:10 | disposition home or self-care (01) ==
LOC: ED 13:27
DX: I47.1 Supraventricular tachycardia (principal); I45.10 Unspecified right bundle-branch block; I10 Essential (primary) hypertension; G20 Parkinson's disease; Z86.711 Personal history of pulmonary embolism; Z79.01 Long term (current) use of anticoagulants; Z85.118 Personal history of other malignant neoplasm of bronchus and lung
CPT/HCPCS: 36415; 80048; 83735; 84484; 85025; 93005; 99284

== ENCOUNTER 2020-07-14 16:44 | Emergency (ER) | payer MEDICARE, OTHER ==
--- NOTE | 2020-07-14 17:13 | ED Physician Documentation ---
PD HPI HEAD INJURY - Stated complaint Stated Complaint: HEAD INJURY - Chief complaint Chief Complaint: Trauma Hd/Nk - History obtained from History obtained from: Patient, Family (daughter) - Additional information Additional information: 80-year-old woman who is anticoagulated fell in the shower this morning around 11 AM. She slipped on soap. She went forward. She also impacted her right hand and both knees. No loss of consciousness. No significant headache. Review of Systems Ten Systems: 10 systems reviewed and negative Constitutional: denies: Fever, Chills Nose: reports: Reviewed and negative Throat: reports: Reviewed and negative Cardiac: reports: Reviewed and negative PD PAST MEDICAL HISTORY - Past Medical History Cardiovascular: Hypertension, High cholesterol, Pulmonary embolism Respiratory: None Neuro: Dementia, Parkinson's Endocrine/Autoimmune: None GI: None : None HEENT: None Psych: Depression, Anxiety Musculoskeletal: None Derm: None - Past Surgical History Past Surgical History: Yes General: Colonoscopy Ortho: Rotator cuff repair /TOE STAPLER: Mastectomy HEENT: Cataracts - Present Medications Home Medications: Ambulatory Orders Medication Instructions Recorded Confirmed Metoprolol Succinate [Toprol Xl] 12.5 mg PO QPM 06/22/18 07/14/20 Apixaban [Eliquis] 5 mg PO BID #60 tablet 02/20/20 07/14/20 Carbidopa/Levodopa [Carbidopa-Levo 1 tab PO QID 02/20/20 07/14/20 ER 50-200 Tab] Donepezil HCl [Aricept] 10 mg PO DAILY 02/20/20 07/14/20 Escitalopram [Lexapro] 20 mg PO DAILY 02/20/20 07/14/20 Flecainide [Tambocar] 75 mg PO BID 02/20/20 07/14/20 Memantine [Namenda] 5 mg PO BID 02/20/20 07/14/20 Simvastatin [Zocor] 10 mg PO QPM 02/20/20 07/14/20 Venlafaxine [Effexor] 37.5 mg PO BID 02/20/20 07/14/20 - Allergies Allergies/Adverse Reactions: Allergies Allergy/AdvReac Type Severity Reaction Status Date / Time No Known Drug Allergies Allergy Verified 07/14/20 16:55 - Social History Does the pt smoke?: No Smoking Status: Never smoker Does the pt drink ETOH?: No Does the pt have substance abuse?: No - Immunizations Immunizations are current?: Yes PD ED PE NORMAL - Vitals Vital signs reviewed: Yes - General General: Alert and oriented X 3, No acute distress, Other (parkinsons tremor) - HEENT HEENT: PERRL, EOMI - Neck Neck: Supple, no meningeal sign, No bony TTP - Back Back: No CVA TTP, No spinal TTP - Derm Derm: Normal color, Warm and dry - Extremities Extremities: Other (Tender/bruised prox RMF. Both knee mild TTP B patella.) - Neuro Neuro: Alert and oriented X 3, Normal speech Results - Vitals Vitals: Vital Signs - 24 hr 07/14/20 07/14/20 16:55 17:54 Temperature 36.3 C L Heart Rate 80 60 Respiratory 20 18 Rate Blood Pressure 92/69 135/76 H O2 Saturation 92 98 Oxygen O2 Source Room air - Rads (name of study) CT cervical spine Radiology: EMP read contemporaneously (No acute disease, improved pulmonary fibrosis from prior.) Xrays of the right hand and both knees Radiology: EMP read contemporaneously CT Head Radiology: EMP read contemporaneously (NAD) PD MEDICAL DECISION MAKING - ED course ED course: I showed the daughter her [id number] and HAS-BLED score. Basically she is at a point of equipoise between bleeding and stroke risk and the HAS-BLED score does not consider frequent falls and the patient is falling quite a lot. I gave her the printouts and discussed that she should discuss this with her slubber runner or PCP. Departure - Departure Disposition: 01 Home, Self Care Clinical Impression: Anticoagulated Injury of head and neck Qualifiers: Encounter type: initial encounter Qualified Code(s): S09.90XA - Unspecified injury of head, initial encounter; S19.9XXA - Unspecified injury of neck, initial encounter Hand contusion Qualifiers: Encounter type: initial encounter Laterality: right Qualified Code(s): S60.221A - Contusion of right hand, initial encounter Knee contusion Qualifiers: Encounter type: initial encounter Laterality: unspecified laterality Qualified Code(s): S80.00XA - Contusion of unspecified knee, initial encounter Condition: Good Record reviewed to determine appropriate education?: Yes Instructions: ED Head Injury Closed Comments: As discussed, the chance of her bleeding from her blood thinner and the chance of her having a stroke without a blood thinner is about the same. That does not account for frequent falls. Discuss whether or not she should continue her blood thinner in the setting of frequent falls with her primary care physician and/or slubber runner. Return for new or worsening symptoms. If she is not using a walker, she should be.
--- NOTE | 2020-07-14 17:48 | XRAY Report ---
PROCEDURE: Knee 3 View BILAT INDICATIONS: B knee inj TECHNIQUE: 3 views of the bilateral knee(s) were acquired. COMPARISON: None. FINDINGS: Bones: No fractures or dislocations. No suspicious bony lesions. Mild to moderate bilateral tricom partmental osteoarthritis is seen more prominent in medial femoral tibial compartments. Soft tissues: No joint effusion. No suspicious soft tissue calcifications. 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 No fracture or dislocation. No significant joint effusion. Reviewed by: Kannan Ruffin MD on 07/14/2020 5:47 PM PST Approved by: Kannan Ruffin MD on 07/14/2020 5:47 PM PST Station ID: [id number]
--- NOTE | 2020-07-14 17:49 | XRAY Report ---
PROCEDURE: Hand 3 View RT INDICATIONS: hand inj TECHNIQUE: 3 views of the hand(s) acquired. COMPARISON: None FINDINGS: Bones: No fractures or dislocations. Osteoarthritic changes throughout right hand and wrist joints are seen. There is mild osteopenia. No gross bony erosive changes. No suspicious bony lesions. Soft tissues: No suspicious soft tissue calcifications. IMPRESSION: No acute right hand fracture or dislocation. Osteoarthritis throughout right hand and wrist. Reviewed by: Kannan Ruffin MD on 07/14/2020 5:48 PM PST Approved by: Kannan Ruffin MD on 07/14/2020 5:48 PM [facility] Station ID: [id number]
[2020-07-14 17:55] VITALS: BP 135/76
--- NOTE | 2020-07-14 17:55 | CT Report ---
PROCEDURE: CERVICAL SPINE WO INDICATIONS: head and neck injury TECHNIQUE: Noncontrast 3 mm thick sections acquired from the skull base to the T4 level. Sagittal and coronal r eformats were then constructed. For radiation dose reduction, the following was used: automated exp osure control, adjustment of mA and/or kV according to patient size. COMPARISON: 02/19/[address] FINDINGS: Image quality: Excellent. Bones: No fractures or dislocations. Visualized superior ribs are intact. Soft tissues: Prevertebral soft tissues are normal in thickness. No paravertebral hematomas. No ap ical pneumothoraces. Note is again made of medial right upper lobe airspace disease, fibrotic in yoanna earance, which was more prominent on the comparison CT scanning 02/19/2020. IMPRESSION: Moderate degenerative disc disease and facet osteoarthritis most pronounced at the C5-C6 level of the mid cervical spine. Note is made of a fibrotic pattern of airspace disease medial right upper lobe, but significantly improved both in terms of extent of disease and fibrotic change when comparing this current study to the prior CT pulmonary angiogram from 02/19/2020. Reviewed by: Maximo Thibodeaux MD on 07/14/2020 4:54 PM [facility] Approved by: Maximo Thibodeaux MD on 07/14/2020 4:54 PM [facility] Station ID: [id number]
--- NOTE | 2020-07-14 17:57 | CT Report ---
PROCEDURE: HEAD WO INDICATIONS: head injury TECHNIQUE: Noncontrast 4.5 mm thick angled axial sections acquired from the foramen magnum to the vertex. For r adiation dose reduction, the following was used: automated exposure control, adjustment of mA and/or kV according to patient size. COMPARISON: None. FINDINGS: Image quality: Excellent. CSF spaces: Basal cisterns are patent. No extra-axial fluid collections. Ventricles are normal in size and shape. Brain: No midline shift. No intracranial masses or hemorrhage. Vázquez-white matter interface is norm al. Skull and face: Calvarium and visualized facial bones are intact, without suspicious lesions. Sinuses: Visualized sinuses and mastoids are clear. IMPRESSION: No trauma found. No intracranial hemorrhage. Reviewed by: Maximo Thibodeaux MD on 07/14/2020 4:56 PM [facility] Approved by: Maximo Thibodeaux MD on 07/14/2020 4:56 PM [facility] Station ID: [id number]
== END 2020-07-14 18:35 | disposition home or self-care (01) ==
LOC: ED 16:44
DX: S09.90XA Unspecified injury of head, initial encounter (principal); S19.9XXA Unspecified injury of neck, initial encounter; S60.221A Contusion of right hand, initial encounter; S60.031A Contusion of right middle finger without damage to nail, initial encounter; S80.00XA Contusion of unspecified knee, initial encounter; W18.2XXA Fall in (into) shower or empty bathtub, initial encounter; Y93.E1 Activity, personal bathing and showering; Z91.81 History of falling; G20 Parkinson's disease; F02.80 Dementia in other diseases classified elsewhere, unspecified severity, without behavioral disturbance, psychotic disturbance, mood disturbance, and anxiety; M17.0 Bilateral primary osteoarthritis of knee; M50.322 Other cervical disc degeneration at C5-C6 level; M47.812 Spondylosis without myelopathy or radiculopathy, cervical region; I10 Essential (primary) hypertension; Z86.711 Personal history of pulmonary embolism; Z79.01 Long term (current) use of anticoagulants
CPT/HCPCS: 99284